=== PATIENT | male | born 1945 | race Caucasian/White ===

== ENCOUNTER → 2018-10-14 16:02 | Outpatient (CLI) | payer OTHER, SELFPAY ==
[2018-10-14 17:49] LABS: Estimated Glomerular Filt Rate > 60.0 mL/min (>60)
== END ==
PROVIDERS: PCP Family Medicine; Visit Provider Internal Medicine
DX: G44.82 Headache associated with sexual activity (principal)
CPT/HCPCS: 36415; 82565

== ENCOUNTER → 2018-10-17 08:13 | Outpatient (CLI) | payer OTHER, SELFPAY ==
--- NOTE | 2018-10-17 | DI.MRI.S_ITS ---
PROCEDURE: MR HEAD/BRAIN WO/W CON INDICATIONS: VASCULAR HEADACHE TECHNIQUE: Noncontrast axial T1 spin echo, axial T2 fast spin echo, sagittal and axial FLAIR, coronal T2 fast spin echo, axial gradient echo, axial diffusion and ADC through the brain. After the administration of contrast, axial and coronal T1 spin echo with fat saturation through the brain. COMPARISON: None. FINDINGS: Image quality: Excellent. CSF spaces: Basal cisterns are patent. No extra-axial fluid collections. Ventricles are normal in size and shape. Brain: No midline shift. No intracranial bleeds or masses. No abnormal intracranial enhancement. There is cerebral volume loss for age. There is periventricular white matter chronic small vessel ischemic change. The brainstem appears normal. Diffusion-weighted images demonstrate no acute ischemic insults. No chronic ischemic insults. Normal intravascular flow voids are present. Skull and face: Calvarial marrow is normal in signal. Orbits appear normal. There is a 12 mm diameter well-circumscribed high T2 intensity focus within the posterior nasopharynx, consistent with a Tornwaldt cyst. Sinuses: Sinuses and mastoids appear clear. IMPRESSION: 1. No acute intracranial abnormality. No examination for headache. 2. Mild volume loss and small vessel ischemic disease. 3. Small Tornwaldt cyst. Dictated by: Ismael Cruz M.D. on 10/17/2018 at 11:46 Approved by: Ismael Cruz M.D. on 10/17/2018 at 11:48
--- NOTE | 2018-10-17 | DI.MRI.S_ITS ---
PROCEDURE: MR CERVICAL SPINE WO/W CON INDICATIONS: VASCULAR HEADACHE TECHNIQUE: Noncontrast sagittal T1 spin echo and T2 fast spin echo, sagittal STIR, foraminal oblique sagittal T2 fast spin echo, axial gradient echo or T2 fast spin echo through the cervical spine. After the administration of contrast, axial and sagittal T1 spin echo with fat saturation through the cervical spine. COMPARISON: None. FINDINGS: Image quality: Excellent. Alignment and curvature: There is loss of normal cervical lordosis. There is mild focal kyphosis at C3-C4. Marrow: Marrow is normal in overall signal, without suspicious enhancement. Anterior fusion of C4-C7 has been performed. There is moderate reactive signal within the endplates adjacent to the T1-T2 intervertebral disc. Within the right lateral mass of T2, there is a 12 mm diameter well-circumscribed high T2 intensity and low T1 intensity focus which demonstrates post contrast-enhancement. Spinal cord: Visualized spinal cord has normal size and signal. No cerebellar tonsillar herniation. No abnormal intramedullary enhancement. Paraspinous soft tissues: No paravertebral masses or suspicious enhancement. C2-3: Congenital canal stenosis. Moderate disc desiccation. Mild diffuse disc bulge with superimposed broad-based right posterolateral protrusion. Right greater than left facet and uncovertebral hypertrophy. There is moderate to severe canal stenosis. Mild cord flattening. Severe right and mild left foraminal stenosis. Right C3 nerve root flattening. C3-4: Congenital canal stenosis. Moderate disc desiccation. Mild diffuse disc bulge. Small superimposed central protrusion. Moderate facet and uncovertebral hypertrophy bilaterally. Severe canal stenosis. Mild anterior cord flattening. Severe left and moderate right foraminal stenosis. Left C4 nerve root flattening. C4-5: Status post fusion. Congenital canal stenosis. Mild residual disc osteophyte complex. Bilateral facet and uncovertebral hypertrophy. Moderate canal stenosis. Severe left and moderate right foraminal stenosis. Mild flattening deformity of the left C5 nerve root. C5-6: Status post fusion. Congenital canal stenosis. Bilateral facet and uncovertebral hypertrophy. Moderate canal stenosis. Moderate foraminal stenosis bilaterally. C6-7: Congenital canal stenosis. Status post fusion. Mild residual disc osteophyte complex. Bilateral facet and uncovertebral hypertrophy. Severe canal stenosis. Mild cord flattening. Severe bilateral foraminal stenosis. Bilateral intraforaminal C7 nerve root flattening. C7-T1: Moderate disc desiccation. Mild diffuse disc bulge. Mild disc height loss. Congenital canal stenosis. Mild facet and uncovertebral hypertrophy. Moderate canal stenosis. Mild foraminal stenosis bilaterally. T1-T2: Moderate disc height loss and desiccation. Moderate diffuse disc bulge. Congenital canal stenosis. Bilateral moderate facet and uncovertebral hypertrophy. Severe canal stenosis. Mild cord flattening. Severe foraminal stenosis bilaterally. Bilateral T1 nerve root flattening. IMPRESSION: 1. Diffuse congenital canal stenosis with superimposed disc and facet disease, as well as uncovertebral hypertrophy. 2. Postsurgical sequelae at C4-C7. 3. Multilevel canal stenoses, worst at C2-C3, C3-C4, C6-C7, and T1-T2, where there is associated cord flattening present. 4. Multilevel foraminal stenoses, worst at C2-C3, C3-C4, C4-C5, C6-C7, and T1-T2, where there is associated intraforaminal neural compression as described above. 5. Indeterminate focus of enhancement within the right T2 transverse process; further assessment with bone scan is recommended. Dictated by: Ismael Cruz M.D. on 10/17/2018 at 11:52 Approved by: Ismael Cruz M.D. on 10/17/2018 at 12:00
== END ==
PROVIDERS: PCP Family Medicine; Visit Provider Internal Medicine
DX: G44.1 Vascular headache, not elsewhere classified (principal); I67.82 Cerebral ischemia; M50.21 Other cervical disc displacement, high cervical region; M48.02 Spinal stenosis, cervical region; J39.2 Other diseases of pharynx; Z98.1 Arthrodesis status
CPT/HCPCS: 70553; 72156; A9579

== ENCOUNTER 2019-01-05 11:27 | Emergency (ER) | payer MEDICARE, OTHER, SELFPAY ==
--- NOTE | 2019-01-05 11:37 | PC.NURSE ---
Attempted to triage upon arrival to ED but pt wanted to call [facility] to get permission first no acute distress.
[2019-01-05 11:56] VITALS: BP 141/88; PULSE 79; RESP 18; TEMP 37; O2SAT 95
[2019-01-05 12:23] LABS: Bacteria Urine None Seen; RBC Urine None Seen (0-5/HPF); WBC Urine None Seen (0-5/HPF)
[2019-01-05 12:42] LABS: Culture Indicated Urine Cult Not Indicated; Urine Comments Microscopic Normal
--- NOTE | 2019-01-05 13:27 | ED.MALEGU ---
HPI - Male Genitourinary General Chief complaint: Urogenital-Male Stated complaint: States he passed Kidney stone last night Time Seen by Provider: 01/05/19 13:27 Source: patient Mode of arrival: ambulatory Limitations: no limitations History of Present Illness HPI Narrative: This is a 73-year-old male who comes to the emergency department with complaint of right flank pain as well as right upper quadrant pain. Patient states it was last night he felt like he was passing a kidney stone although the right upper quadrant pain in the anterior abdomen was new. He states that it has resolved. Patient denies any fevers, he did have nausea and vomiting or dry heaves last night that has all resolved. He has had some mild constipation. He denies any abdominal pain or flank pain at this time. He did not know any blood in his urine. He states that he has done this before. He did take an oxycodone which helped take the edge off until his symptoms resolved. He called the nursing hotline this morning at 6 they recommended that he come to the local hospital for evaluation and he presented here. Related Data Home Medications Medication Instructions Recorded Confirmed Artificial Tears (polyvin alc) 1 - 2 drp OPHTHALMIC (EYE) QID PRN 01/05/19 01/05/19 ammonium lactate 1 applic TOPICAL BID 01/05/19 01/05/19 aspirin 81 mg PO DAILY 01/05/19 01/05/19 bupropion HCl 150 mg PO BID 01/05/19 01/05/19 cholecalciferol (vitamin D3) 1,000 unit PO DAILY 01/05/19 01/05/19 [Vitamin D3] cyanocobalamin (vitamin B-12) 1,000 mcg PO DAILY 01/05/19 01/05/19 gabapentin 300 mg PO BID 01/05/19 01/05/19 losartan 100 mg PO DAILY 01/05/19 01/05/19 meclizine 25 - 50 mg PO DAILY PRN 01/05/19 01/05/19 metformin 1,000 mg PO BID 01/05/19 01/05/19 methylphenidate HCl [Concerta] 27 mg PO DAILY 01/05/19 01/05/19 multivitamin with minerals 1 tab PO DAILY 01/05/19 01/05/19 omeprazole 20 mg PO DAILY 01/05/19 01/05/19 prednisone 5 mg PO DAILY 01/05/19 01/05/19 rosuvastatin 2.5 mg PO BEDTIME 01/05/19 01/05/19 sulindac 200 mg PO BID 01/05/19 01/05/19 tamsulosin 0.4 mg PO DAILY 01/05/19 01/05/19 Allergies Allergy/AdvReac Type Severity Reaction Status Date / Time No Known Drug Allergies Allergy Verified 01/05/19 12:00 Review of Systems Review of Systems ROS Unobtainable: All systems reviewed & are unremarkable except as noted in HPI and below Constitutional Denies chills, Denies fever(s), Denies lethargy and Denies weakness Cardiovascular Denies chest pain, Denies irregular heart rhythm, Denies lightheadedness, Denies dyspnea and Denies dyspnea on exertion Respiratory Denies cough, Denies dyspnea, Denies dyspnea on exertion and Denies wheezing Gastrointestinal Gastrointestinal: Reports abdominal pain (Right upper quadrant), Denies change in bowel habits, Denies diarrhea, Reports nausea (Resolved) and Reports vomiting (Resolved) Genitourinary Denies hematuria, Denies difficulty urinating, Denies dysuria, Denies flank pain, Denies urinary frequency, Denies urinary hesitancy, Denies urinary incontinence, Denies urinary urgency and Reports other (Right flank pain) Neurologic Denies weakness Allergic/Immunologic Denies wheezing PFSH Social History Smoking Status: Never smoker Social History Smoking Status: Never smoker Exam Narrative Exam Narrative: GENERAL: Alert and oriented x three, well-nourished, well-appearing male in no acute distress. HEENT: Head normocephalic, atraumatic, EOMI, pupils reactive, face symmetric, moist mucous membranes NECK: Supple, full range of motion CARDIOVASCULAR: Regular rate and rhythm without murmurs, rubs or gallops. RESPIRATORY: Breath sounds equal bilaterally, no wheezes rales or rhonchi. ABDOMEN: Soft, very mild right upper quadrant tenderness. Normoactive bowel sounds all 4 quadrants. No guarding or rebound, rigidity, no mass : No CVA tenderness right or left-sided. EXTREMITIES: Normal range of motion, no clubbing or edema. Neurovascularly intact. normal gait. NEUROLOGICAL: Cranial nerves II through XII grossly intact. Moving all extremities SKIN: Warm, dry, no petechiae, no rashes or lesions. Initial Vital Signs Initial Vital Signs: Vital Signs Temperature 98.6 F 01/05/19 11:56 Pulse Rate 79 01/05/19 11:56 Respiratory Rate 18 01/05/19 11:56 Blood Pressure 141/88 H 01/05/19 11:56 Pulse Oximetry 95 01/05/19 11:56 Course Orders Ordered: ED Orders 01/05/19 12:12 Urine Microscopic Stat 01/05/19 13:45 US abdomen complete Stat 01/05/19 14:51 Complete Blood Count AUTO DIFF Stat Comprehensive Metabolic Panel Stat Vital Signs - 8 hr 01/05/19 15:31 Pulse Rate 71 Respiratory Rate 17 Blood Pressure [Left Arm] 142/99 H Pulse Oximetry 92 MDM - Male Genitourinary Lab Data Result diagrams: 01/05/19 14:51 01/05/19 14:51 Lab Results 01/05/19 01/05/19 01/05/19 Range/Units 12:12 14:51 14:51 WBC 7.3 (4.5-11.0) X10^3/uL RBC 5.53 (4.5-5.9) X10^6/uL Hgb 16.1 (13.5-17.5) g/dL Hct 47.2 (41-53) % MCV 85.5 (80-100) fL MCH 29.2 (26-34) PG MCHC 34.2 (30-36) % RDW 14.9 H (11.6-14.8) % Plt Count 159 (150-400) X10^3/uL Neut % (Auto) 69.2 (50-75) % Lymph % (Auto) 18.1 L (25-40) % [place] % (Auto) 11.5 (3-14) % Eos % (Auto) 0.9 L (2-4) % Baso % (Auto) 0.3 (0-2) % Neut # (Auto) 5100 (7945-6028) /uL Lymph # (Auto) 1300 (4633-4203) /uL [place] # (Auto) 800 (0-900) /uL Eos # (Auto) 100 (0-450) /uL Baso # (Auto) 0 (0-100) /uL Sodium 136 L (137-145) mmol/L Potassium 4.4 (3.4-5.1) mmol/L Chloride 99 (98-107) mmol/L Carbon Dioxide 28 (22-32) mmol/L BUN 22 H (9-20) mg/dL Creatinine 1.40 H (0.66-1.25) mg/dL Estimated GFR 50.0 L (>60) mL/min BUN/Creatinine Ratio 15.7 (6-22) Glucose 159 H (80-110) mg/dL Calcium 11.1 H (8.4-10.2) mg/dL Total Bilirubin 0.8 (0.2-1.3) mg/dL AST 33 (17-59) IU/L ALT 75 H (21-72) IU/L Alkaline Phosphatase 62 (38-126) U/L Total Protein 7.4 (6.3-8.2) g/dL Albumin 4.7 (3.5-5.0) g/dL Globulin 2.7 (1.7-4.1) g/dL Albumin/Globulin Ratio 1.7 (1.0-2.8) Urine RBC None seen (0-5/HPF) Urine WBC None seen (0-5/HPF) Urine Bacteria None seen (None) Ur Culture Indicated? Cult not indicated Micro UA Comment Microscopic normal Point of Care Testing Glucose POC 159 Urine Dip Bedside Urine Glucose 1000 mg/dl Bedside Urine Bilirubin - Negative Bedside Urine Ketone +/- 5 Urine Specific [place] 1.025 Bedside Urine Occult Blood +/- Bedside Urine pH 6.0 Bedside Urine Protein - Negative Bedside Urine Urobilinogen - Negative Bedside Urine Nitrite - Negative Bedside Urine Leukocytes - Negative Esterase Imaging Data US - abdomen: Radiologist's impression: Sukumar Ruano Louis 73 M 1945 [place] [address] Ultrasound Report Signed Patient: Sukumar Ruano OMR#: [id number] : 8Acct:[id number] Age/Sex: 73 / MDate of Service: 01/05/19 Loc: ED Accession Number: [id number] Procedure: US abdomen complete Ordering Provider: Iman Carlos D.O. PROCEDURE: US ABDOMEN COMPLETE INDICATIONS: RUQ/Right flank pain improving TECHNIQUE: Real-time scanning was performed of the abdominal and retroperitoneal organs, with image documentation. COMPARISON: None. FINDINGS: Liver: Liver is enlarged and measures 22.1 cm in length. Increased liver parenchymal echotexture is seen. No gross discrete hepatic lesion is noted. Gallbladder: There is no gallstone. No gallbladder wall thickening or pericholecystic fluid. No sonographic Canela's sign. Biliary ducts: Intrahepatic bile ducts are non-dilated. Extrahepatic bile duct caliber measures 4.1 mm. Normal is 6-7 mm or less in diameter, or 10 mm or less post-cholecystectomy. Pancreas: Visualized portions of the pancreas are sonographically normal. Spleen: Spleen is normal in size and homogeneous in echotexture. Kidneys: Kidneys are normal in size and echotexture. Right kidney measures 10.8 cm long; left kidney measures 13.1 cm long. No hydronephrosis or nephrolithiasis. No solid masses. Aorta: Visualized aorta is normal in caliber at less than 3 cm. Iliacs: Proximal common iliac arteries are normal in caliber at less than 2.5 cm. IVC: Intrahepatic inferior vena cava is patent. Miscellaneous: No free abdominal fluid. IMPRESSION: #1. Slightly limited study due to patient's large body habitus and poor penetration through the liver. #2. Hepatomegaly and diffusely increased liver parenchymal echotexture suggestive of hepatic steatosis. No discrete hepatic lesion. #3. Rest of exam is unremarkable. Dictated by: Wes Miramontes M.D. on 01/05/2019 at 14:44 Approved by: Wes Miramontes M.D. on 01/05/2019 at 14:46 MDM Narrative Medical decision making narrative: Patient's ultrasound does not have any acute changes. Patient's renal function creatinine did increase from 1 from October 12-1.4 today, BUN is also slightly elevated. Patient's sodium is 136. ALT is 75 which is elevated from prior the rest of patient's LFTs are normal CBC shows a left shift but otherwise normal. discussed with patient plan for follow-up with repeat renal function. patient is asymptomatic at this time. Also encouraged hydration orally. Discussed these findings with the patient. He is comfortable with this plan. We did discuss he can return for recheck. Discharge Plan Departure Patient Disposition: Home Clinical Impression: Right flank pain, Elevated serum creatinine Abdominal pain Qualifiers: Abdominal location: right upper quadrant Qualified Code(s): R10.11 - Right upper quadrant pain Discharge Date/Time: 01/05/19 15:42 Interventions: ED Discharge Assessment Last Done: 01/05/19 15:41 Instructions: DI for Abdominal Pain-Adult Activity Restrictions/Additional Instructions: Follow-up with your primary care in the next 3-5 days for recheck. Your urine today does show blood which would be consistent with a kidney stone. Her renal function is slightly elevated at 1.4 which is up from the last lab work in September. He should follow up with your physician to have this rechecked in the next several days. Ultrasound does not show any gallstones or changes to the gallbladder, there was difficulty imaging the kidney well but no large kidney stones were noted. Continue your home medications as prescribed. Return to the ER for fevers greater than 100.4, worsening back or flank pain, persistent vomiting, passing out, lightheadedness, shortness of breath or other new or concerning symptoms. Prescriptions: No Action Artificial Tears (polyvin alc) 1 - 2 drp ophthalmic (eye) QID PRN (Reason: Dry Eyes) RF: 0 bupropion HCl 150 mg Tablet Sustained-Release 12 Hr 150 mg PO BID RF: 0 ammonium lactate 12 % Lotion 1 applic TOPICAL BID RF: 0 prednisone 5 mg Tablet 5 mg PO DAILY RF: 0 cyanocobalamin (vitamin B-12) 1,000 mcg Tablet 1,000 mcg PO DAILY RF: 0 aspirin 81 mg Tablet,Delayed Release (Dr/Ec) 81 mg PO DAILY RF: 0 tamsulosin 0.4 mg Capsule 0.4 mg PO DAILY RF: 0 metformin 1,000 mg Tablet 1,000 mg PO BID RF: 0 gabapentin 300 mg Capsule 300 mg PO BID RF: 0 omeprazole 20 mg Capsule,Delayed Release(Dr/Ec) 20 mg PO DAILY RF: 0 multivitamin with minerals Tablet 1 tab PO DAILY RF: 0 losartan 100 mg Tablet 100 mg PO DAILY RF: 0 sulindac 200 mg Tablet 200 mg PO BID RF: 0 meclizine 25 mg Tablet,Chewable 25 - 50 mg PO DAILY PRN (Reason: Vertigo) RF: 0 methylphenidate HCl [Concerta] 27 mg Tablet Extended Release 24hr 27 mg PO DAILY RF: 0 rosuvastatin 5 mg Tablet 2.5 mg PO BEDTIME RF: 0 cholecalciferol (vitamin D3) [Vitamin D3] 1,000 unit Tablet 1,000 unit PO DAILY RF: 0 Referrals: Mimi Tomas MD [Primary Care Provider] -
--- NOTE | 2019-01-05 13:45 | DI.US.S_ITS ---
PROCEDURE: US ABDOMEN COMPLETE INDICATIONS: RUQ/Right flank pain improving TECHNIQUE: Real-time scanning was performed of the abdominal and retroperitoneal organs, with image documentation. COMPARISON: None. FINDINGS: Liver: Liver is enlarged and measures 22.1 cm in length. Increased liver parenchymal echotexture is seen. No gross discrete hepatic lesion is noted. Gallbladder: There is no gallstone. No gallbladder wall thickening or pericholecystic fluid. No sonographic Canela's sign. Biliary ducts: Intrahepatic bile ducts are non-dilated. Extrahepatic bile duct caliber measures 4.1 mm. Normal is 6-7 mm or less in diameter, or 10 mm or less post-cholecystectomy. Pancreas: Visualized portions of the pancreas are sonographically normal. Spleen: Spleen is normal in size and homogeneous in echotexture. Kidneys: Kidneys are normal in size and echotexture. Right kidney measures 10.8 cm long; left kidney measures 13.1 cm long. No hydronephrosis or nephrolithiasis. No solid masses. Aorta: Visualized aorta is normal in caliber at less than 3 cm. Iliacs: Proximal common iliac arteries are normal in caliber at less than 2.5 cm. IVC: Intrahepatic inferior vena cava is patent. Miscellaneous: No free abdominal fluid. IMPRESSION: #1. Slightly limited study due to patient's large body habitus and poor penetration through the liver. #2. Hepatomegaly and diffusely increased liver parenchymal echotexture suggestive of hepatic steatosis. No discrete hepatic lesion. #3. Rest of exam is unremarkable. Dictated by: Wes Miramontes M.D. on 01/05/2019 at 14:44 Approved by: Wes Miramontes M.D. on 01/05/2019 at 14:46
--- NOTE | 2019-01-05 13:53 | ED_ITS ---
HPI - Male Genitourinary General Chief complaint: Urogenital-Male Stated complaint: States he passed Kidney stone last night Time Seen by Provider: 01/05/19 13:27 Source: patient Mode of arrival: ambulatory Limitations: no limitations History of Present Illness HPI Narrative: This is a 73-year-old male who comes to the emergency department with complaint of right flank pain as well as right upper quadrant pain. P atient states it was last night he felt like he was passing a kidney stone although the right upper quadrant pain in the anterior abdomen was new. He states that it has resolved. Patient denies any fevers, he did have nausea and vomiting or dry heaves last night that has all resolved. He has had some mild constipation. He denies any abdominal pain or flank pain at this time. He did not know any blood in his urine. He states that he has done this before. He did take an oxycodone which helped take the edge off until his symptoms resolved. He called the nursing hotline this morning at 6 they recommended that he come to the local hospital for evaluation and he presented here. Related Data Home Medications Medication Instructions Recorded Confirmed Artificial Tears (polyvin alc) 1 - 2 drp OPHTHALMIC (EYE) QID PRN 01/05/19 01/05/19 ammonium lactate 1 applic TOPICAL BID 01/05/19 01/05/19 aspirin 81 mg PO DAILY 01/05/19 01/05/19 bupropion HCl 150 mg PO BID 01/05/19 01/05/19 cholecalciferol (vitamin D3) 1,000 unit PO DAILY 01/05/19 01/05/19 [Vitamin D3] cyanocobalamin (vitamin B-12) 1,000 mcg PO DAILY 01/05/19 01/05/19 gabapentin 300 mg PO BID 01/05/19 01/05/19 losartan 100 mg PO DAILY 01/05/19 01/05/19 meclizine 25 - 50 mg PO DAILY PRN 01/05/19 01/05/19 metformin 1,000 mg PO BID 01/05/19 01/05/19 methylphenidate HCl [Concerta] 27 mg PO DAILY 01/05/19 01/05/19 multivitamin with minerals 1 tab PO DAILY 01/05/19 01/05/19 omeprazole 20 mg PO DAILY 01/05/19 01/05/19 prednisone 5 mg PO DAILY 01/05/19 01/05/19 rosuvastatin 2.5 mg PO BEDTIME 01/05/19 01/05/19 sulindac 200 mg PO BID 01/05/19 01/05/19 tamsulosin 0.4 mg PO DAILY 01/05/19 01/05/19 Allergies Allergy/AdvReac Type Severity Reaction Status Date / Time No Known Drug Allergies Allergy Verified 01/05/19 12:00 Review of Systems Review of Systems ROS Unobtainable: All systems reviewed & are unremarkable except as noted in HPI and below Constitutional Denies chills, Denies fever(s), Denies lethargy and Denies weakness Cardiovascular Denies chest pain, Denies irregular heart rhythm, Denies lightheadedness, Denies dyspnea and Denies dyspnea on exertion Respiratory Denies cough, Denies dyspnea, Denies dyspnea on exertion and Denies wheezing Gastrointestinal Gastrointestinal: Reports abdominal pain (Right upper quadrant), Denies change in bowel habits, Denies diarrhea, Reports nausea (Resolved) and Reports vomiting (Resolved) Genitourinary Denies hematuria, Denies difficulty urinating, Denies dysuria, Denies flank pain, Denies urinary frequency, Denies urinary hesitancy, Denies urinary incontinence, Denies urinary urgency and Reports other (Right flank pain) Neurologic Denies weakness Allergic/Immunologic Denies wheezing PFSH Social History Smoking Status: Never smoker Social History Smoking Status: Never smoker Exam Narrative Exam Narrative: GENERAL: Alert and oriented x three, well-nourished, well- appearing male in no acute distress. HEENT: Head normocephalic, atraumatic, EOMI, pupils reactive, face symmetric, moist mucous membranes NECK: Supple, full range of motion CARDIOVASCULAR: Regular rate and rhythm without murmurs, rubs or gallops. RESPIRATORY: Breath sounds equal bilaterally, no wheezes rales or rhonchi. ABDOMEN: Soft, very mild right upper quadrant tenderness. Normoactive bowel sounds all 4 quadrants. No guarding or rebound, rigidity, no mass : No CVA tenderness right or left-sided. EXTREMITIES: Normal range of motion, no clubbing or edema. Neurovascularly int act. normal gait. NEUROLOGICAL: Cranial nerves II through XII grossly intact. Moving all extremities SKIN: Warm, dry, no petechiae, no rashes or lesions. Initial Vital Signs Initial Vital Signs: Vital Signs Temperature 98.6 F 01/05/19 11:56 Pulse Rate 79 01/05/19 11:56 Respiratory Rate 18 01/05/19 11:56 Blood Pressure 141/88 H 01/05/19 11:56 Pulse Oximetry 95 01/05/19 11:56 Course Orders Ordered: ED Orders 01/05/19 12:12 Urine Microscopic Stat 01/05/19 13:45 US abdomen complete Stat 01/05/19 14:51 Complete Blood Count AUTO DIFF Stat Comprehensive Metabolic Panel Stat Vital Signs - 8 hr 01/05/19 15:31 Pulse Rate 71 Respiratory Rate 17 Blood Pressure [Left Arm] 142/99 H Pulse Oximetry 92 MDM - Male Genitourinary Lab Data Result diagrams: 01/05/19 14:51 01/05/19 14:51 Lab Results 01/05/19 01/05/19 01/05/19 Range/Units 12:12 14:51 14:51 WBC 7.3 (4.5-11.0) X10^3/uL RBC 5.53 (4.5-5.9) X10^6/uL Hgb 16.1 (13.5-17.5) g/dL Hct 47.2 (41-53) % MCV 85.5 (80-100) fL MCH 29.2 (26-34) PG MCHC 34.2 (30-36) % RDW 14.9 H (11.6-14.8) % Plt Count 159 (150-400) X10^3/uL Neut % (Auto) 69.2 (50-75) % Lymph % (Auto) 18.1 L (25-40) % [place] % (Auto) 11.5 (3-14) % Eos % (Auto) 0.9 L (2-4) % Baso % (Auto) 0.3 (0-2) % Neut # (Auto) 5100 (0862-6238) /uL Lymph # (Auto) 1300 (9815-0923) /uL [place] # (Auto) 800 (0-900) /uL Eos # (Auto) 100 (0-450) /uL Baso # (Auto) 0 (0-100) /uL Sodium 136 L (137-145) mmol/L Potassium 4.4 (3.4-5.1) mmol/L Chloride 99 (98-107) mmol/L Carbon Dioxide 28 (22-32) mmol/L BUN 22 H (9-20) mg/dL Creatinine 1.40 H (0.66-1.25) mg/dL Estimated GFR 50.0 L (>60) mL/min BUN/Creatinine Ratio 15.7 (6-22) Glucose 159 H (80-110) mg/dL Calcium 11.1 H (8.4-10.2) mg/dL Total Bilirubin 0.8 (0.2-1.3) mg/dL AST 33 (17-59) IU/L ALT 75 H (21-72) IU/L Alkaline Phosphatase 62 (38-126) U/L Total Protein 7.4 (6.3-8.2) g/dL Albumin 4.7 (3.5-5.0) g/dL Globulin 2.7 (1.7-4.1) g/dL Albumin/Globulin Ratio 1.7 (1.0-2.8) Urine RBC None seen (0-5/HPF) Urine WBC None seen (0-5/HPF) Urine Bacteria None seen (None) Ur Culture Indicated? Cult not indicated Micro UA Comment Microscopic normal Point of Care Testing Glucose POC 159 Urine Dip Bedside Urine Glucose 1000 mg/dl Bedside Urine Bilirubin - Negative Bedside Urine Ketone +/- 5 Urine Specific Media 1.025 Bedside Urine Occult Blood +/- Bedside Urine pH 6.0 Bedside Urine Protein - Negative Bedside Urine Urobilinogen - Negative Bedside Urine Nitrite - Negative Bedside Urine Leukocytes - Negative Esterase Imaging Data US - abdomen: Radiologist's impression: Sukumar Ruano Louis 73 M [address] [place] [address] Ultrasound Report Signed Patient: Sukumar Ruano OMR#: [id number] : 8Acct:[id number] Age/Sex: 73 / MDate of Service: 01/05/19 Loc: ED Accession Number: [id number] Procedure: US abdomen complete Ordering Provider: Iman Carlos D.O. PROCEDURE: US ABDOMEN COMPLETE INDICATIONS: RUQ/Right flank pain improving TECHNIQUE: Real-time scanning was performed of the abdominal and retroperitoneal organs, with image documentation. COMPARISON: None. FINDINGS: Liver: Liver is enlarged and measures 22.1 cm in length. Increased liver parenchymal echotexture is seen. No gross discrete hepatic lesion is noted. Gallbladder: There is no gallstone. No gallbladder wall thickening or pericholecystic fluid. No sonographic Canela's sign. Biliary ducts: Intrahepatic bile ducts are non-dilated. Extrahepatic bile duct caliber measures 4.1 mm. Normal is 6-7 mm or less in diameter, or 10 mm or less post-cholecystectomy. Pancreas: Visualized portions of the pancreas are sonographically normal. Spleen: Spleen is normal in size and homogeneous in echotexture. Kidneys: Kidneys are normal in size and echotexture. Right kidney measures 10.8 cm long; left kidney measures 13.1 cm long. No hydronephrosis or nephrolithiasis. No solid masses. Aorta: Visualized aorta is normal in caliber at less than 3 cm. Iliacs: Proximal common iliac arteries are normal in caliber at less than 2.5 cm. IVC: Intrahepatic inferior vena cava is patent. Miscellaneous: No free abdominal fluid. IMPRESSION: #1. Slightly limited study due to patient's large body habitus and poor penetra tion through the liver. #2. Hepatomegaly and diffusely increased liver parenchymal echotexture sugg estive of hepatic steatosis. No discrete hepatic lesion. #3. Rest of exam is unremarkable. Dictated by: Wes Miramontes M.D. on 01/05/2019 at 14:44 Approved by: Wes Miramontes M.D. on 01/05/2019 at 14:46 MDM Narrative Medical decision making narrative: Patient's ultrasound does not have any acute changes. Patient's renal function creatinine did increase from 1 from October 12-1.4 today, BUN is also slightly elevated. Patient's sodium is 136. ALT is 75 which is elevated from prior the rest of patient's LFTs are normal CBC shows a left shift but otherwise normal. discussed with patient plan for follow-up with repeat renal function. patient is asymptomatic at this time. Also encouraged hydration orally. Discussed these findings with the patient. He is comfortable with this plan. We did discuss he can return for recheck. Discharge Plan Departure Patient Disposition: Home Clinical Impression: Right flank pain, Elevated serum creatinine Abdominal pain Qualifiers: Abdominal location: right upper quadrant Qualified Code(s): R10.11 - Right upper quadrant pain Discharge Date/Time: 01/05/19 15:42 Interventions: ED Discharge Assessment Last Done: 01/05/19 15:41 Instructions: DI for Abdominal Pain-Adult Activity Restrictions/Additional Instructions: Follow-up with your primary care in the next 3-5 days for recheck. Your urine today does show blood which would be consistent with a kidney stone. Her renal function is slightly elevated at 1.4 which is up from the last lab work in September. He should follow up with your physician to have this rechecked in the next several days. Ultrasound does not show any gallstones or changes to the gallbladder, there was difficulty imaging the kidney well but no large kidney stones were noted. Continue your home medications as prescribed. Return to the ER for fevers greater than 100.4, worsening back or flank pain, persistent vomiting, passing out, lightheadedness, shortness of breath or other new or concerning symptoms. Prescriptions: No Action Artificial Tears (polyvin alc) 1 - 2 drp ophthalmic (eye) QID PRN (Reason: Dry Eyes) RF: 0 bupropion HCl 150 mg Tablet Sustained-Release 12 Hr 150 mg PO BID RF: 0 ammonium lactate 12 % Lotion 1 applic TOPICAL BID RF: 0 prednisone 5 mg Tablet 5 mg PO DAILY RF: 0 cyanocobalamin (vitamin B-12) 1,000 mcg Tablet 1,000 mcg PO DAILY RF: 0 aspirin 81 mg Tablet,Delayed Release (Dr/Ec) 81 mg PO DAILY RF: 0 tamsulosin 0.4 mg Capsule 0.4 mg PO DAILY RF: 0 metformin 1,000 mg Tablet 1,000 mg PO BID RF: 0 gabapentin 300 mg Capsule 300 mg PO BID RF: 0 omeprazole 20 mg Capsule,Delayed Release(Dr/Ec) 20 mg PO DAILY RF: 0 multivitamin with minerals Tablet 1 tab PO DAILY RF: 0 losartan 100 mg Tablet 100 mg PO DAILY RF: 0 sulindac 200 mg Tablet 200 mg PO BID RF: 0 meclizine 25 mg Tablet,Chewable 25 - 50 mg PO DAILY PRN (Reason: Vertigo) RF: 0 methylphenidate HCl [Concerta] 27 mg Tablet Extended Release 24hr 27 mg PO DAILY RF: 0 rosuvastatin 5 mg Tablet 2.5 mg PO BEDTIME RF: 0 cholecalciferol (vitamin D3) [Vitamin D3] 1,000 unit Tablet 1,000 unit PO DAILY RF: 0 Referrals: Mimi Tomas MD [Primary Care Provider] -
[2019-01-05 14:59] LABS: Add Manual Diff / Slide Review NO; Basophils Absolute Auto 0 /uL (0-100); Basophils Percent Auto 0.3 % (0-2); Eosinophils Absolute Auto 100 /uL (0-450); Eosinophils Percent Auto 0.9 % (2-4); Hematocrit 47.2 % (41-53); Hemoglobin 16.1 g/dL (13.5-17.5); Lymphocytes Absolute Auto 1300 /uL (1100-4500); Lymphocytes Percent Auto 18.1 % (25-40); Mean Corpuscular HGB Conc 34.2 % (30-36); Mean Corpuscular Hemoglobin 29.2 PG (26-34); Mean Corpuscular Volume 85.5 fL (80-100); Monocytes Absolute Auto 800 /uL (0-900); Monocytes Percent Auto 11.5 % (3-14); Neutrophils Absolute Auto 5100 /uL (1500-7000); Neutrophils Percent Auto 69.2 % (50-75); Platelet Count 159 X10^3/uL (150-400); Red Blood Cell Count 5.53 X10^6/uL (4.5-5.9); Red Cell Distribution Width 14.9 % (11.6-14.8); White Blood Cell Count 7.3 X10^3/uL (4.5-11.0)
[2019-01-05 15:13] LABS: Alanine Aminotransferase 75 IU/L (21-72); Albumin 4.7 g/dL (3.5-5.0); Albumin Globulin Ratio 1.7 (1.0-2.8); Alkaline Phosphatase 62 U/L (38-126); Aspartate Aminotransferase 33 IU/L (17-59); BUN Creatinine Ratio 15.7 (6-22); Bilirubin Total 0.8 mg/dL (0.2-1.3); Blood Urea Nitrogen 22 mg/dL (9-20); Calcium 11.1 mg/dL (8.4-10.2); Carbon Dioxide 28 mmol/L (22-32); Chloride 99 mmol/L (98-107); Globulin 2.7 g/dL (1.7-4.1); Glucose 159 mg/dL (80-110); HEMOLYSIS 15 (0-50); Potassium 4.4 mmol/L (3.4-5.1); Sodium 136 mmol/L (137-145); Total Protein 7.4 g/dL (6.3-8.2)
[2019-01-05 15:31] VITALS: BP 142/99; PULSE 71; RESP 17; O2SAT 92
== END 2019-01-05 15:42 | disposition home or self-care (01) ==
PROVIDERS: Emergency Provider Emergency Medicine; Family Provider Family Medicine; PCP Family Medicine
DX: R10.11 Right upper quadrant pain (principal); R10.9 Unspecified abdominal pain; R79.89 Other specified abnormal findings of blood chemistry
CPT/HCPCS: 36591; 76700; 80053; 81003; 81015; 82962; 85025; 99283; 99284

== ENCOUNTER 2019-06-30 20:26 | Emergency (ER) | payer MEDICARE, OTHER, SELFPAY ==
[2019-06-30 20:38] VITALS: BP 105/61; PULSE 97; RESP 15; TEMP 36.9; O2SAT 96; BMI 34.2
--- NOTE | 2019-06-30 20:51 | ED.FEVER ---
HPI - Fever General Chief Complaint: Fever Stated Complaint: fever and headache s/p surgery Time Seen by Provider: 06/30/19 20:33 Source: patient Mode of arrival: Ambulatory Limitations: no limitations History of Present Illness HPI Narrative: 73-year-old male here for evaluation of less than 24 hours of a fever, headache and chills. approximately 3 weeks ago patient underwent a spinal fusion surgery at [facility]. Reports no new neurologic symptoms. Actually states that his pain is improving and is what he would expect this far out from the surgery. No tingling in his arms. Does have left posterior neck pain that he states is the source of his headache. no rashes. No drainage from the surgical wound. He called the on-call nurse for the spine team at [facility] who recommended that he come to [facility] for evaluation however the patient the family stated that they did not want to drive that far so they came to this emergency department. Related Data Home Medications Medication Instructions Recorded Confirmed Artificial Tears (polyvin alc) 1 - 2 drp OPHTHALMIC (EYE) QID PRN 01/05/19 01/05/19 ammonium lactate 1 applic TOPICAL BID 01/05/19 01/05/19 aspirin 81 mg PO DAILY 01/05/19 01/05/19 bupropion HCl 150 mg PO BID 01/05/19 01/05/19 cholecalciferol (vitamin D3) 1,000 unit PO DAILY 01/05/19 01/05/19 [Vitamin D3] cyanocobalamin (vitamin B-12) 1,000 mcg PO DAILY 01/05/19 01/05/19 gabapentin 300 mg PO BID 01/05/19 01/05/19 losartan 100 mg PO DAILY 01/05/19 01/05/19 meclizine 25 - 50 mg PO DAILY PRN 01/05/19 01/05/19 metformin 1,000 mg PO BID 01/05/19 01/05/19 methylphenidate HCl [Concerta] 27 mg PO DAILY 01/05/19 01/05/19 multivitamin with minerals 1 tab PO DAILY 01/05/19 01/05/19 omeprazole 20 mg PO DAILY 01/05/19 01/05/19 prednisone 5 mg PO DAILY 01/05/19 01/05/19 rosuvastatin 2.5 mg PO BEDTIME 01/05/19 01/05/19 sulindac 200 mg PO BID 01/05/19 01/05/19 tamsulosin 0.4 mg PO DAILY 01/05/19 01/05/19 Allergies Allergy/AdvReac Type Severity Reaction Status Date / Time No Known Drug Allergies Allergy Verified 06/30/19 20:38 Review of Systems Constitutional Constitutional: Reports chills, Reports fatigue, Reports fever(s) and Reports headache(s) Eyes Eyes: Denies change in vision ENT Ears, Nose, Mouth, and Throat: Denies vertigo, Denies dizziness, Reports headache(s), Denies sinus pressure and Denies sore throat Cardiovascular Cardiovascular: Denies chest pain and Denies dyspnea Respiratory Respiratory: Denies dyspnea Genitourinary Genitourinary: Denies dysuria Musculoskeletal Musculoskeletal: Denies myalgias and Denies arthralgias Integumentary/Breasts Skin/Breast: Denies lesions and Denies rash Neurologic Neurologic: Denies behavioral changes, Denies vertigo, Denies dizziness and Reports headache(s) Psychiatric Psychiatric: Denies behavioral changes Endocrine Endocrine: Reports fatigue Hematologic/Lymphatic Hematologic/Lymphatic: Denies easy bleeding and Denies easy bruising Allergic/Immunologic Allergic/Immunologic: Denies urticaria [facility] Medical History Diabetes (Acute) Gastroesophageal reflux disease (Acute) Hyperlipidemia (Acute) Social History Smoking Status: Never smoker Social History Smoking Status: Never smoker Exam Initial Vital Signs Initial Vital Signs: Vital Signs Temperature 98.5 F 06/30/19 20:38 Pulse Rate 97 H 06/30/19 20:38 Respiratory Rate 15 06/30/19 20:38 Blood Pressure 105/61 06/30/19 20:38 Pulse Oximetry 96 06/30/19 20:38 Const General: cooperative, comfortable and well developed Orientation: alert and awake HENNJ Head: normal to inspection and normocephalic Resp Effort & Inspection: normal respiratory effort Auscultation: clear to auscultation bilaterally Cardio Rate: regular rate Rhythm: regular rhythm GI Inspection: non-distended Palpation: soft Back/Spine/Pelvis Cervical Spine: other (Limited range of motion secondary to surgery) Skin Other: Well healing surgical scar posterior neck and upper back Neuro General: alert, awake and oriented x3 Cranial Nerves: CN's II-XI intact bilaterally Cognition: normal cognition Speech: speech normal Gait: normal gait Motor: muscle tone normal throughout Sensory Exam: no sensory deficits noted Extrem General: normal to inspection and capillary refill normal Psych Appearance: grossly normal and well kempt Course Orders Ordered: ED Orders 06/30/19 21:27 Basic Metabolic Panel Stat C-Reactive Protein Quant Stat Complete Blood Count AUTO DIFF Stat Erythrocyte Sedimentation Rate Stat Lactate (Lactic Acid) Stat Procalcitonin Stat 06/30/19 21:42 Blood Culture Stat 06/30/19 22:46 Influenza A and B by PCR Rapid Stat Discontinued Medications Acetaminophen (Tylenol) 325 mg PO Q6HR PRN PRN Reason: As Needed for Fever/Mild Pain Last Admin: 06/30/19 23:31 Dose: 325 mg Documented by: PAUL Vital Signs Vital signs: Vital Signs - 8 hr 06/30/19 20:38 06/30/19 22:16 06/30/19 22:42 Temperature 98.5 F 99.9 F H Pulse Rate 97 H 88 Respiratory Rate 15 14 Blood Pressure 105/61 Blood Pressure [Right Arm] 110/64 Pulse Oximetry 96 95 06/30/19 23:31 06/30/19 23:44 Temperature 99.9 F H Pulse Rate 94 H Respiratory Rate 20 Blood Pressure 111/61 Blood Pressure [Right Arm] Pulse Oximetry 100 MDM - Fever Lab Data Attestation: I reviewed the patient's lab results. Result diagrams: 06/30/19 21:27 06/30/19 21:27 Labs: Lab Results 06/30/19 06/30/19 06/30/19 Range/Units 21:27 21:27 21:27 WBC 8.4 (4.5-11.0) X10^3/uL RBC 4.22 L (4.5-5.9) X10^6/uL Hgb 12.3 L (13.5-17.5) g/dL Hct 36.6 L (41-53) % MCV 86.6 (80-100) fL MCH 29.1 (26-34) PG MCHC 33.6 (30-36) % RDW 14.4 (11.6-14.8) % Plt Count 183 (150-400) X10^3/uL Neut % (Auto) 90.7 H (50-75) % Lymph % (Auto) 3.4 L (25-40) % [place] % (Auto) 5.3 (3-14) % Eos % (Auto) 0.2 L (2-4) % Baso % (Auto) 0.4 (0-2) % Neut # (Auto) 7600 H (3661-6905) /uL Lymph # (Auto) 300 L (3617-7328) /uL [place] # (Auto) 400 (0-900) /uL Eos # (Auto) 0 (0-450) /uL Baso # (Auto) 0 (0-100) /uL ESR 12 (0-15) MM/HR Sodium 132 L (137-145) mmol/L Potassium 5.1 (3.4-5.1) mmol/L Chloride 102 (98-107) mmol/L Carbon Dioxide 23 (22-32) mmol/L BUN 34 H (9-20) mg/dL Creatinine 1.30 H (0.66-1.25) mg/dL Estimated GFR 54.4 L (>60) mL/min BUN/Creatinine Ratio 26.2 H (6-22) Glucose 337 H (80-110) mg/dL Lactate (0.7-2.1) mmol/L Calcium 10.4 H (8.4-10.2) mg/dL C-Reactive Protein 5.0 H (<1.0) mg/dL Procalcitonin 0.75 H (<0.5) ng/mL Influenza A & B (PCR) (Negative) 06/30/19 06/30/19 Range/Units 21:27 22:46 WBC (4.5-11.0) X10^3/uL RBC (4.5-5.9) X10^6/uL Hgb (13.5-17.5) g/dL Hct (41-53) % MCV (80-100) fL MCH (26-34) PG MCHC (30-36) % RDW (11.6-14.8) % Plt Count (150-400) X10^3/uL Neut % (Auto) (50-75) % Lymph % (Auto) (25-40) % [place] % (Auto) (3-14) % Eos % (Auto) (2-4) % Baso % (Auto) (0-2) % Neut # (Auto) (3349-0212) /uL Lymph # (Auto) (2081-7995) /uL [place] # (Auto) (0-900) /uL Eos # (Auto) (0-450) /uL Baso # (Auto) (0-100) /uL ESR (0-15) MM/HR Sodium (137-145) mmol/L Potassium (3.4-5.1) mmol/L Chloride (98-107) mmol/L Carbon Dioxide (22-32) mmol/L BUN (9-20) mg/dL Creatinine (0.66-1.25) mg/dL Estimated GFR (>60) mL/min BUN/Creatinine Ratio (6-22) Glucose (80-110) mg/dL Lactate 2.2 H (0.7-2.1) mmol/L Calcium (8.4-10.2) mg/dL C-Reactive Protein (<1.0) mg/dL Procalcitonin (<0.5) ng/mL Influenza A & B (PCR) Negative (Negative) MDM Narrative Medical decision making narrative: Patient has no neurologic symptoms. no specific source of the fever. I did discuss the case with the on-call spine neurosurgeon who stated that if the patient look well which he does and his labs or what I described that he would recommend not sending the patient down for further advanced imaging. He recommended waiting for the next 12-24 hours to see if the symptoms change specifically if the patient develops any new neurologic symptoms. I did consider meningitis, spinal epidural abscess, hematoma, or other source of a fever. The patient looks very well. he has no new neurologic symptoms. I did discuss this the patient. We discussed the use of Tylenol for symptom control. He was informed that if his symptoms worsen or he develops any neurologic symptoms it would be best for him to go directly to [facility] to obtain further advanced imaging and be evaluated by the operative surgeons. Patient family expressed understanding and agreement with plan. Discharge Plan Departure Patient Disposition: Home Clinical Impression: Chills with fever Discharge Date/Time: 06/30/19 23:45 Instructions: DI for Fever (Symptom) -- Adult Activity Restrictions/Additional Instructions: Take the Tylenol like we discussed. Continue all of your postoperative instructions given to you by your operative surgeon. If you start to develop worsening headache, worsening pain, new neurologic symptoms please contact your operative surgeon and it would be best if you went to [facility] show that they could do advanced imaging if needed. You can return to this emergency department for any new or worsening symptoms like we discussed Prescriptions: No Action Artificial Tears (polyvin alc) 1 - 2 drp ophthalmic (eye) QID PRN (Reason: Dry Eyes) RF: 0 bupropion HCl 150 mg Tablet Sustained-Release 12 Hr 150 mg PO BID RF: 0 ammonium lactate 12 % Lotion 1 applic TOPICAL BID RF: 0 prednisone 5 mg Tablet 5 mg PO DAILY RF: 0 cyanocobalamin (vitamin B-12) 1,000 mcg Tablet 1,000 mcg PO DAILY RF: 0 aspirin 81 mg Tablet,Delayed Release (Dr/Ec) 81 mg PO DAILY RF: 0 tamsulosin 0.4 mg Capsule 0.4 mg PO DAILY RF: 0 metformin 1,000 mg Tablet 1,000 mg PO BID RF: 0 gabapentin 300 mg Capsule 300 mg PO BID RF: 0 omeprazole 20 mg Capsule,Delayed Release(Dr/Ec) 20 mg PO DAILY RF: 0 multivitamin with minerals Tablet 1 tab PO DAILY RF: 0 losartan 100 mg Tablet 100 mg PO DAILY RF: 0 sulindac 200 mg Tablet 200 mg PO BID RF: 0 meclizine 25 mg Tablet,Chewable 25 - 50 mg PO DAILY PRN (Reason: Vertigo) RF: 0 methylphenidate HCl [Concerta] 27 mg Tablet Extended Release 24hr 27 mg PO DAILY RF: 0 rosuvastatin 5 mg Tablet 2.5 mg PO BEDTIME RF: 0 cholecalciferol (vitamin D3) [Vitamin D3] 1,000 unit Tablet 1,000 unit PO DAILY RF: 0 Referrals: Mimi Tomas MD [Primary Care Provider] -
[2019-06-30 21:44] LABS: Add Manual Diff / Slide Review NO; Basophils Absolute Auto 0 /uL (0-100); Basophils Percent Auto 0.4 % (0-2); Eosinophils Absolute Auto 0 /uL (0-450); Eosinophils Percent Auto 0.2 % (2-4); Hematocrit 36.6 % (41-53); Hemoglobin 12.3 g/dL (13.5-17.5); Lymphocytes Absolute Auto 300 /uL (1100-4500); Lymphocytes Percent Auto 3.4 % (25-40); Mean Corpuscular HGB Conc 33.6 % (30-36); Mean Corpuscular Hemoglobin 29.1 PG (26-34); Mean Corpuscular Volume 86.6 fL (80-100); Monocytes Absolute Auto 400 /uL (0-900); Monocytes Percent Auto 5.3 % (3-14); Neutrophils Absolute Auto 7600 /uL (1500-7000); Neutrophils Percent Auto 90.7 % (50-75); Platelet Count 183 X10^3/uL (150-400); Red Blood Cell Count 4.22 X10^6/uL (4.5-5.9); Red Cell Distribution Width 14.4 % (11.6-14.8); White Blood Cell Count 8.4 X10^3/uL (4.5-11.0)
[2019-06-30 21:49] LABS: BUN Creatinine Ratio 26.2 (6-22); Blood Urea Nitrogen 34 mg/dL (9-20); Calcium 10.4 mg/dL (8.4-10.2); Carbon Dioxide 23 mmol/L (22-32); Chloride 102 mmol/L (98-107); Estimated Glomerular Filt Rate 54.4 mL/min (>60); Glucose 337 mg/dL (80-110); HEMOLYSIS < 15 (0-50); Lactate (Lactic Acid) 2.2 mmol/L (0.7-2.1); Sodium 132 mmol/L (137-145)
[2019-06-30 21:50] LABS: Potassium 5.1 mmol/L (3.4-5.1)
[2019-06-30 22:03] LABS: Procalcitonin 0.75 ng/mL (<0.5)
[2019-06-30 22:06] LABS: Erythrocyte Sedimentation Rate 12 MM/HR (0-15)
[2019-06-30 22:16] VITALS: BP 110/64; PULSE 88; RESP 14; O2SAT 95
[2019-06-30 22:42] VITALS: TEMP 37.7
[2019-06-30 23:06] LABS: Influenza A and B by PCR Rapid Negative (Negative)
[2019-06-30 23:31] VITALS: TEMP 37.7
[2019-06-30] MEDS: ACETAMINOPHEN 325 MG TABLET PO (23:31)
[2019-06-30 23:35] LABS: Reflexed Lactate in 2 Hours Y
[2019-06-30 23:44] VITALS: BP 111/61; PULSE 94; RESP 20; O2SAT 100
== END 2019-06-30 23:45 | disposition home or self-care (01) ==
PROVIDERS: Emergency Provider Emergency Medicine; Family Provider Family Medicine; PCP Family Medicine
DX: R50.9 Fever, unspecified (principal); E11.9 Type 2 diabetes mellitus without complications
CPT/HCPCS: 36415; 80048; 83605; 84145; 85025; 85651; 86140; 87040; 87400; 87502; 99282; 99283

== ENCOUNTER 2020-07-18 11:23 | Emergency (ER) | payer MEDICARE, OTHER, SELFPAY ==
[2020-07-18 11:25] VITALS: BP 144/72; PULSE 90; RESP 14; TEMP 37.6; O2SAT 97
--- NOTE | 2020-07-18 11:40 | DI.RAD.S_ITS ---
PROCEDURE: XR CHEST 1V INDICATIONS: suspected sepsis TECHNIQUE: One view of the chest was acquired. COMPARISON: [facility], , CHEST 1 VIEW, 07/07/2017, 2:22. FINDINGS: Surgical changes and devices: Extensive fusion of visualized cervical spine is seen. Lungs and pleura: Lungs are clear. No pleural effusions or pneumothorax. Mediastinum: Mediastinal contours appear normal. Heart size is normal. Bones and chest wall: No suspicious bony lesions. Overlying soft tissues appear unremarkable. IMPRESSION: No acute cardiopulmonary pathology. Dictated by: Wes Miramontes M.D. on 07/18/2020 at 12:24 Approved by: Wes Miramontes M.D. on 07/18/2020 at 12:24
[2020-07-18 12:32] LABS: Bacteria Urine None Seen; RBC Urine None Seen (0-5/HPF)
[2020-07-18 12:52] LABS: Culture Indicated Urine Cult Not Indicated; Squamous Epithelial Cell Urine 0-1 /HPF (0-5/HPF); WBC Urine 0-1/HPF (0-5/HPF)
[2020-07-18 12:58] LABS: Add Manual Diff / Slide Review NO; Basophils Absolute Auto 0 /uL (0-100); Basophils Percent Auto 0.4 % (0-2); Eosinophils Absolute Auto 200 /uL (0-450); Eosinophils Percent Auto 2.8 % (2-4); Hematocrit 36.9 % (41-53); Hemoglobin 12.1 g/dL (13.5-17.5); Lymphocytes Absolute Auto 1300 /uL (1100-4500); Lymphocytes Percent Auto 17.3 % (25-40); Mean Corpuscular HGB Conc 32.8 % (30-36); Mean Corpuscular Hemoglobin 28.1 PG (26-34); Mean Corpuscular Volume 85.9 fL (80-100); Monocytes Absolute Auto 700 /uL (0-900); Monocytes Percent Auto 9.7 % (3-14); Neutrophils Absolute Auto 5100 /uL (1500-7000); Neutrophils Percent Auto 69.8 % (50-75); Platelet Count 316 X10^3/uL (150-400); Red Blood Cell Count 4.29 X10^6/uL (4.5-5.9); Red Cell Distribution Width 15.1 % (11.6-14.8); White Blood Cell Count 7.3 X10^3/uL (4.5-11.0)
[2020-07-18 13:05] LABS: INR 1.1 (0.9-1.3); Prothrombin Time 12.1 SECONDS (10.1-12.7)
[2020-07-18 13:08] LABS: PTT Partial Thromboplastin Tim 28 SECONDS (26.4-36.2)
[2020-07-18 13:10] LABS: Lactate (Lactic Acid) 1.6 mmol/L (0.7-2.1)
[2020-07-18] MEDS: SODIUM CHLORIDE 0.9% 1,000 ML 1000 ML IV (13:13)
[2020-07-18 13:15] LABS: Alanine Aminotransferase 47 IU/L (<50); Albumin 3.9 g/dL (3.5-5.0); Albumin Globulin Ratio 1.3 (1.0-2.8); Alkaline Phosphatase 70 U/L (38-126); Aspartate Aminotransferase 25 IU/L (17-59); BUN Creatinine Ratio 21.9 (6-22); Bilirubin Total 0.5 mg/dL (0.2-1.3); Blood Urea Nitrogen 21 mg/dL (9-20); Calcium 11.6 mg/dL (8.4-10.2); Carbon Dioxide 27 mmol/L (22-32); Chloride 100 mmol/L (98-107); Estimated Glomerular Filt Rate > 60.0 mL/min (>60); Glucose 253 mg/dL (80-110); HEMOLYSIS 17 (0-50); Lipase 112 U/L (23-300); Potassium 4.5 mmol/L (3.4-5.1); Sodium 133 mmol/L (137-145); Total Protein 6.9 g/dL (6.3-8.2)
[2020-07-18 13:34] LABS: Procalcitonin < 0.05 ng/mL (<0.5)
[2020-07-18 14:25] VITALS: BP 121/67; PULSE 77; RESP 18; TEMP 37.1; O2SAT 99
[2020-07-18] MEDS: OXYCODONE/ACETAMINOPHEN 5/325 TABLET 1 TAB PO (14:29)
[2020-07-18] MEDS: ACETAMINOPHEN 325 MG TABLET PO (14:29)
--- NOTE | 2020-07-18 15:08 | ED_ITS ---
HPI - Skin/Abscess/Foreign Bdy <SUN Presley - Last Filed: 07/19/20 02:48> General Chief complaint: Skin/Abscess/Foreign Body Stated complaint: wound dressing post surgery Time Seen by Provider: 07/18/20 11:38 Source: patient Mode of arrival: Ambulatory Limitations: no limitations History of Present Illness HPI narrative: This is a 74 year male, nonsmoker, with past medical history significant for diabetes, hypertension, GERD, and recent L1-S1 spine fusion surgery at [place] by Dr. Hoff on 07/07/20 presents to ED with daughter requesting dressing change on surgical site on his lumbar region. Daughter reports surgery went well and he was released 1 week ago to home. Patient has a follow-up appointment in [address] Hoff's office. However, during triage urge, patient reports had fever up to 101 F 2 days ago and today it was 99.7. Patient reports some chills. Patient reports he is feeling well and pain is well managed and rates his pain as 3/10. Patient is ambulatory at this time. He denies chest pain, short of breath, cough, sore throat, urinary urge ncy/frequency/or dysuria. Patient reports intermittent headaches. Patient was to change surgical dressing daily but 1st dressing change was done just yesterday after dc to home 6 days ago. Denies significant drainage noted with dressing change. Daughter reports patient had cellulitis in lower leg in the past after the surgery. Related Data Home Medications Medication Instructions Recorded Confirmed Artificial Tears (polyvin alc) 1 - 2 drp OPHTHALMIC (EYE) QID PRN 01/05/19 01/05/19 ammonium lactate 1 applic TOPICAL BID 01/05/19 01/05/19 aspirin 81 mg PO DAILY 01/05/19 01/05/19 bupropion HCl 150 mg PO BID 01/05/19 01/05/19 cholecalciferol (vitamin D3) 1,000 unit PO DAILY 01/05/19 01/05/19 [Vitamin D3] cyanocobalamin (vitamin B-12) 1,000 mcg PO DAILY 01/05/19 01/05/19 gabapentin 300 mg PO BID 01/05/19 01/05/19 losartan 100 mg PO DAILY 01/05/19 01/05/19 meclizine 25 - 50 mg PO DAILY PRN 01/05/19 01/05/19 metformin 1,000 mg PO BID 01/05/19 01/05/19 methylphenidate HCl [Concerta] 27 mg PO DAILY 01/05/19 01/05/19 multivitamin with minerals 1 tab PO DAILY 01/05/19 01/05/19 omeprazole 20 mg PO DAILY 01/05/19 01/05/19 prednisone 5 mg PO DAILY 01/05/19 01/05/19 rosuvastatin 2.5 mg PO BEDTIME 01/05/19 01/05/19 sulindac 200 mg PO BID 01/05/19 01/05/19 tamsulosin 0.4 mg PO DAILY 01/05/19 01/05/19 Allergies Allergy/AdvReac Type Severity Reaction Status Date / Time No Known Drug Allergies Allergy Verified 06/30/19 20:38 Review of Systems <SUN Presley - Last Filed: 07/19/20 02:48> Review of Systems Narrative: General: See HPI HEENT: Denies sinus pain, ear pain, sore throat, difficulty swallowing, dizziness. Respiratory: Denies dyspnea, cough, wheezing, hemoptysis, sputum. Cardiovascular: Denies chest pain, palpitations, orthopnea, edema. Gastrointestinal: Denies nausea, vomiting, abdominal pain, diarrhea, constipation, melena. : Denies dysuria, frequency, incontinence, hematuria, urinary retention. Musculoskeletal: See HPI Skin: Denies rash, skin lesions, or other. Neurologic: Denies weakness, headache, numbness, change in speech, confusion, seizures, incoordination. Psychiatric: No concerning psychosocial issues. 12-point review of systems is negative except for those stated above. Patient History <SUN Presley - Last Filed: 07/19/20 02:48> Medical History Cellulitis (Acute) Diabetes (Acute) Gastroesophageal reflux disease (Acute) Hyperlipidemia (Acute) Surgical History History of lumbar spinal fusion (Acute) Social History Smoking Status: Never smoker Smoking Status: Never smoker alcohol intake frequency: holidays/special occasions only Substance Use Type: does not use Exam <Carlos SUN Corona - Last Filed: 07/19/20 02:48> Narrative Exam Narrative: GEN: Alert, oriented x 3, well appearing and nourished, and in no acute distress. Head: Normal cephalic, atraumatic. No scalp or temporal tenderness, palpable mass or rash. EYES: Pupils are equal, round, and reactive to light and accommodation. Extraocular muscles are intact bilaterally. There is no subconjunctival hemorrhage, exudate and sclera non-icteric. ENT: Hearing grossly intact. Nose without bleeding, purulent discharge or dev iation. Mucous membrane moist, no mucosal lesion. Throat without erythema, tonsillar hypertrophy or exudate. Uvula in midline, airway patent. Neck: Trachea in midline. No JVD, non-tender without lymphadenopathy. No masses or thyroid megaly. Supple, non-tender and no meningeal signs. CARDIAC: Normal regular rate and rhythm without murmurs, gallops, or rubs. No chest wall tenderness. No peripheral edema, cyanosis or pallor. Capillary refill is less than 2 seconds. RESPIRATORY: Lungs are clear to auscultate bilaterally. No cough, wheezes, rales, or rhonchi. No stridor, respiratory distress, increase work of breathing, or accessary muscle used. ABD: Abdomen soft, nontender and non-distended. No guarding or rebound tenderness to palpate. Bowel sounds are normal in all 4 quadrants. There is no palpable masses or organomegaly. EXT: Full painless ROM of all extremities with no loss of sensation, strength, effusion or edema. No significant erythema, swelling, tenderness to palpate in bilateral lower legs. SKIN: Vertical Surgical incision on low back with intact sutures. Very mild erythema and edema to upper portion of surgical incision with very minimal non purulent drainage without significant warmth to palpate. BACK: Nontender without deformity or crepitance. No flank tenderness. NEUROLOGICAL: Alert and oriented to place, time and person. Sensation and motor function intact bilaterally. No facial droops, dysphasia. PSYCHIATRIC: Good judgement and reason, without hallucinations, abnormal affect or abnormal behaviors during the examination. Patient is not suicidal. Initial Vital Signs Initial Vital Signs: Vital Signs Temperature 99.7 F H 07/18/20 11:25 Pulse Rate 90 07/18/20 11:25 Respiratory Rate 14 07/18/20 11:25 Blood Pressure 144/72 H 07/18/20 11:25 Pulse Oximetry 97 07/18/20 11:25 <Toro Harrison DO - Last Filed: 07/19/20 07:33> Initial Vital Signs Initial Vital Signs: Vital Signs Temperature 99.7 F H 07/18/20 11:25 Pulse Rate 90 07/18/20 11:25 Respiratory Rate 14 07/18/20 11:25 Blood Pressure 144/72 H 07/18/20 11:25 Pulse Oximetry 97 07/18/20 11:25 Scores <SUN Presley - Last Filed: 07/19/20 02:48> GCS [place] coma scale eye opening: Spontaneous [place] coma scale verbal response: Orientated [place] coma scale motor response: Obey commands [place] coma scale total score: 15 qSOFA Altered Mental Status (GCS <15): No Respiratory rate greater than/equal to 22: No Systolic blood pressure less than or equal to 100: No qSOFA Total: 0 0-1 Not High Risk 1-3 High risk Course <SUN Presley - Last Filed: 07/19/20 02:48> Orders Ordered: Discontinued Medications Acetaminophen (Tylenol) 650 mg PO NOW ONE Stop: 07/18/20 11:39 Last Admin: 07/18/20 11:42 Dose: Not Given Documented by: CHASITY Acetaminophen (Tylenol) 325 mg PO NOW ONE Stop: 07/18/20 14:17 Last Admin: 07/18/20 14:29 Dose: 325 mg Documented by: DEBORA Cyclobenzaprine HCl (Flexeril) 10 mg PO NOW ONE Stop: 07/18/20 11:39 Last Admin: 07/18/20 11:43 Dose: Not Given Documented by: CHASITY Sodium Chloride (Normal Saline 0.9%) 1,000 mls @ 1,000 mls/hr IV BOLUS ONE Stop: 07/18/20 12:39 Last Infusion: 07/18/20 14:35 Dose: 0 mls/hr Documented by: Admin: 07/18/20 13:13 Dose: 1,000 mls/hr Documented by: DEBORA Ketorolac Tromethamine (Toradol) 30 mg IM NOW ONE Stop: 07/18/20 11:39 Last Admin: 07/18/20 11:43 Dose: Not Given Documented by: CHASITY Lidocaine (Lidoderm) 1 each TOP NOW ONE Stop: 07/18/20 11:39 Last Admin: 07/18/20 11:43 Dose: Not Given Documented by: CHASITY Lidocaine (Lidoderm (Remove Patch)) 1 each TOP BEDTIME TARUN Oxycodone/Acetaminophen (Percocet 5/325) 1 tab PO NOW ONE Stop: 07/18/20 14:17 Last Admin: 07/18/20 14:29 Dose: 1 tab Documented by: DEBORA Consultations Consultation #1: [facility]oke with [facility] and provide pertinent information to Dolores and waiting for Dr. Hoff's return phone call. Time: 15:09 Consultation #2: SPoke with Dr. Pedersen at [place] (neurosurgeon) with the findings. Recommended monitor the surgical wound and keep the sutures intact and keep the wound site open to air and to follow-up at the office on as scheduled. No further recommendation given with assuring labs, x-rays, urine test, physical exams, and vital signs. Time: 15:18 Vital Signs Vital signs: Vital Signs - 8 hr 07/18/20 11:25 07/18/20 14:25 07/18/20 15:35 Temperature 99.7 F H 98.8 F Pulse Rate 90 77 83 Respiratory Rate 14 18 16 Blood Pressure 144/72 H 121/67 130/78 Pulse Oximetry 97 99 99 <Toro Harrison, - Last Filed: 07/19/20 07:33> Orders Ordered: Discontinued Medications Acetaminophen (Tylenol) 650 mg PO NOW ONE Stop: 07/18/20 11:39 Last Admin: 07/18/20 11:42 Dose: Not Given Documented by: CHASITY Acetaminophen (Tylenol) 325 mg PO NOW ONE Stop: 07/18/20 14:17 Last Admin: 07/18/20 14:29 Dose: 325 mg Documented by: DEBORA Cyclobenzaprine HCl (Flexeril) 10 mg PO NOW ONE Stop: 07/18/20 11:39 Last Admin: 07/18/20 11:43 Dose: Not Given Documented by: CHASITY Sodium Chloride (Normal Saline 0.9%) 1,000 mls @ 1,000 mls/hr IV BOLUS ONE Stop: 07/18/20 12:39 Last Infusion: 07/18/20 14:35 Dose: 0 mls/hr Documented by: Admin: 07/18/20 13:13 Dose: 1,000 mls/hr Documented by: DEBORA Ketorolac Tromethamine (Toradol) 30 mg IM NOW ONE Stop: 07/18/20 11:39 Last Admin: 07/18/20 11:43 Dose: Not Given Documented by: CHASITY Lidocaine (Lidoderm) 1 each TOP NOW ONE Stop: 07/18/20 11:39 Last Admin: 07/18/20 11:43 Dose: Not Given Documented by: CHASITY Lidocaine (Lidoderm (Remove Patch)) 1 each TOP BEDTIME TARUN Oxycodone/Acetaminophen (Percocet 5/325) 1 tab PO NOW ONE Stop: 07/18/20 14:17 Last Admin: 07/18/20 14:29 Dose: 1 tab Documented by: DEBORA Vital Signs Vital signs: Vital Signs - 8 hr 07/18/20 11:25 07/18/20 14:25 07/18/20 15:35 Temperature 99.7 F H 98.8 F Pulse Rate 90 77 83 Respiratory Rate 14 18 16 Blood Pressure 144/72 H 121/67 130/78 Pulse Oximetry 97 99 99 MDM - Skin/Abscess/Foreign Bdy <Carlos SUN Corona - Last Filed: 07/19/20 02:48> Differential Diagnosis Differential diagnosis: Likely abscess of skin or subcutaneous tissue and other (Pneumonia, atelectasis, UTI, cellulitis, postsurgical infection) Medical Records Attestation: I reviewed the patient's medical records. Lab Data Attestation: I reviewed the patient's lab results. Result diagrams: 07/18/20 12:38 07/18/20 12:38 Labs: Lab Results 07/18/20 07/18/20 07/18/20 Range/Units 12:31 12:38 12:38 WBC 7.3 (4.5-11.0) X10^3/uL RBC 4.29 L (4.5-5.9) X10^6/uL Hgb 12.1 L (13.5-17.5) g/dL Hct 36.9 L (41-53) % MCV 85.9 (80-100) fL MCH 28.1 (26-34) PG MCHC 32.8 (30-36) % RDW 15.1 H (11.6-14.8) % Plt Count 316 (150-400) X10^3/uL Neut % (Auto) 69.8 (50-75) % Lymph % (Auto) 17.3 L (25-40) % [place] % (Auto) 9.7 (3-14) % Eos % (Auto) 2.8 (2-4) % Baso % (Auto) 0.4 (0-2) % Neut # (Auto) 5100 (2119-8558) /uL Lymph # (Auto) 1300 (4804-0673) /uL [place] # (Auto) 700 (0-900) /uL Eos # (Auto) 200 (0-450) /uL Baso # (Auto) 0 (0-100) /uL PT 12.1 (10.1-12.7) SECONDS INR 1.1 (0.9-1.3) APTT 28 (26.4-36.2) SECONDS Sodium (137-145) mmol/L Potassium (3.4-5.1) mmol/L Chloride (98-107) mmol/L Carbon Dioxide (22-32) mmol/L BUN (9-20) mg/dL Creatinine (0.66-1.25) mg/dL Estimated GFR (>60) mL/min BUN/Creatinine Ratio (6-22) Glucose (80-110) mg/dL Lactate (0.7-2.1) mmol/L Calcium (8.4-10.2) mg/dL Total Bilirubin (0.2-1.3) mg/dL AST (17-59) IU/L ALT (<50) IU/L Alkaline Phosphatase (38-126) U/L Total Protein (6.3-8.2) g/dL Albumin (3.5-5.0) g/dL Globulin (1.7-4.1) g/dL Albumin/Globulin Ratio (1.0-2.8) Lipase (23-300) U/L Procalcitonin (<0.5) ng/mL Urine RBC None seen (0-5/HPF) Urine WBC 0-1/hpf (0-5/HPF) Ur Squamous Epith Cells 0-1 /hpf (0-5/HPF) Urine Bacteria None seen (None) Ur Culture Indicated? Cult not indicated 07/18/20 07/18/20 07/18/20 Range/Units 12:38 12:38 12:38 WBC (4.5-11.0) X10^3/uL RBC (4.5-5.9) X10^6/uL Hgb (13.5-17.5) g/dL Hct (41-53) % MCV (80-100) fL MCH (26-34) PG MCHC (30-36) % RDW (11.6-14.8) % Plt Count (150-400) X10^3/uL Neut % (Auto) (50-75) % Lymph % (Auto) (25-40) % [place] % (Auto) (3-14) % Eos % (Auto) (2-4) % Baso % (Auto) (0-2) % Neut # (Auto) (0183-4380) /uL Lymph # (Auto) (7941-9989) /uL [place] # (Auto) (0-900) /uL Eos # (Auto) (0-450) /uL Baso # (Auto) (0-100) /uL PT (10.1-12.7) SECONDS INR (0.9-1.3) APTT (26.4-36.2) SECONDS Sodium 133 L (137-145) mmol/L Potassium 4.5 (3.4-5.1) mmol/L Chloride 100 (98-107) mmol/L Carbon Dioxide 27 (22-32) mmol/L BUN 21 H (9-20) mg/dL Creatinine 0.96 (0.66-1.25) mg/dL Estimated GFR > 60.0 (>60) mL/min BUN/Creatinine Ratio 21.9 (6-22) Glucose 253 H (80-110) mg/dL Lactate 1.6 (0.7-2.1) mmol/L Calcium 11.6 H (8.4-10.2) mg/dL Total Bilirubin 0.5 (0.2-1.3) mg/dL AST 25 (17-59) IU/L ALT 47 (<50) IU/L Alkaline Phosphatase 70 (38-126) U/L Total Protein 6.9 (6.3-8.2) g/dL Albumin 3.9 (3.5-5.0) g/dL Globulin 3.0 (1.7-4.1) g/dL Albumin/Globulin Ratio 1.3 (1.0-2.8) Lipase 112 (23-300) U/L Procalcitonin < 0.05 (<0.5) ng/mL Urine RBC (0-5/HPF) Urine WBC (0-5/HPF) Ur Squamous Epith Cells (0-5/HPF) Urine Bacteria (None) Ur Culture Indicated? Urine Dip Bedside Urine Glucose 1000 mg/dl Bedside Urine Bilirubin - Negative Bedside Urine Ketone - Negative Urine Specific [place] 1.025 Bedside Urine Occult Blood - Negative Bedside Urine pH 6.0 Bedside Urine Protein - Negative Bedside Urine Urobilinogen - Negative Bedside Urine Nitrite - Negative Bedside Urine Leukocytes - Negative Esterase Imaging Data Chest x-ray: Radiologist's Impression: [address] [address] XRay Report Signed Patient: Sukumar Ruano OMR#: [id number] : 8Acct:[id number] Age/Sex: 74 / MDate of Service: 07/18/20 Loc: ED Accession Number: [id number] Procedure: XR chest 1V Ordering Provider: Carlos Corona PROCEDURE: XR CHEST 1V INDICATIONS: suspected sepsis TECHNIQUE: One view of the chest was acquired. COMPARISON: [facility], CHEST 1 VIEW, 07/07/2017, 2:22. FINDINGS: Surgical changes and devices: Extensive fusion of visualized cervical spine is seen. Lungs and pleura: Lungs are clear. No pleural effusions or pneumothorax. Mediastinum: Mediastinal contours appear normal. Heart size is normal. Bones and chest wall: No suspicious bony lesions. Overlying soft tissues appear unremarkable. IMPRESSION: No acute cardiopulmonary pathology. Dictated by: Wes Miramontes M.D. on 07/18/2020 at 12:24 Approved by: Wes Miramontes M.D. on 07/18/2020 at 12:24 MDM Narrative Medical decision making narrative: This is a 74-year-old male who had recent lumbar fusion surgery on 07/07/20 at [facility] and released to home a week ago presents to ED requesting surgical dressing change and states he had fever up to 101 F 2 days ago and today's temperature is 99.7? during triage. Patient nontoxic appearing and reports pain is well managed with current pain medication regimen with oxycodone and Tylenol. Physical exam is not consistent with cellulitis in bilateral lower leg. Surgical site appears well without obvious infection. No significant erythema, pain, swelling, or purulent discharge appreciated. Urine test is negative for infection. Chest x- ray is negative for acute findings. CBC shows no leukocytosis. Normal lactate and procalcitonin. Mild anemia with H&H of 12.1/36.9 which is similar to patient's stay H&H 1 year ago. Mild hyponatremia of 133 and hyperglycemia of 253. Mildly elevated BUN of 21 with normal kidney function and liver function test. Patient received IVF and 1 tab of Oxycodone and Tylenol. Consulted Dr. Pedersen, neurosurgon, at [place] with physical findings, labs and imaging test. Dr. Pedersen recommended to have patient follow-up on as scheduled with assuring lab test and physical exam. He also recommended keep wound open to air if there is no drainage. Findings were shared with patient and daughter. Return precautions were discussed and they both verbalized understanding in agreement with the treatment plan. <Toro Harrison, DO - Last Filed: 07/19/20 07:33> Lab Data Labs: Lab Results 07/18/20 07/18/20 07/18/20 Range/Units 12:31 12:38 12:38 WBC 7.3 (4.5-11.0) X10^3/uL RBC 4.29 L (4.5-5.9) X10^6/uL Hgb 12.1 L (13.5-17.5) g/dL Hct 36.9 L (41-53) % MCV 85.9 (80-100) fL MCH 28.1 (26-34) PG MCHC 32.8 (30-36) % RDW 15.1 H (11.6-14.8) % Plt Count 316 (150-400) X10^3/uL Neut % (Auto) 69.8 (50-75) % Lymph % (Auto) 17.3 L (25-40) % [place] % (Auto) 9.7 (3-14) % Eos % (Auto) 2.8 (2-4) % Baso % (Auto) 0.4 (0-2) % Neut # (Auto) 5100 (6805-5481) /uL Lymph # (Auto) 1300 (4888-3578) /uL [place] # (Auto) 700 (0-900) /uL Eos # (Auto) 200 (0-450) /uL Baso # (Auto) 0 (0-100) /uL PT 12.1 (10.1-12.7) SECONDS INR 1.1 (0.9-1.3) APTT 28 (26.4-36.2) SECONDS Sodium (137-145) mmol/L Potassium (3.4-5.1) mmol/L Chloride (98-107) mmol/L Carbon Dioxide (22-32) mmol/L BUN (9-20) mg/dL Creatinine (0.66-1.25) mg/dL Estimated GFR (>60) mL/min BUN/Creatinine Ratio (6-22) Glucose (80-110) mg/dL Lactate (0.7-2.1) mmol/L Calcium (8.4-10.2) mg/dL Total Bilirubin (0.2-1.3) mg/dL AST (17-59) IU/L ALT (<50) IU/L Alkaline Phosphatase (38-126) U/L Total Protein (6.3-8.2) g/dL Albumin (3.5-5.0) g/dL Globulin (1.7-4.1) g/dL Albumin/Globulin Ratio (1.0-2.8) Lipase (23-300) U/L Procalcitonin (<0.5) ng/mL Urine RBC None seen (0-5/HPF) Urine WBC 0-1/hpf (0-5/HPF) Ur Squamous Epith Cells 0-1 /hpf (0-5/HPF) Urine Bacteria None seen (None) Ur Culture Indicated? Cult not indicated 07/18/20 07/18/20 07/18/20 Range/Units 12:38 12:38 12:38 WBC (4.5-11.0) X10^3/uL RBC (4.5-5.9) X10^6/uL Hgb (13.5-17.5) g/dL Hct (41-53) % MCV (80-100) fL MCH (26-34) PG MCHC (30-36) % RDW (11.6-14.8) % Plt Count (150-400) X10^3/uL Neut % (Auto) (50-75) % Lymph % (Auto) (25-40) % [place] % (Auto) (3-14) % Eos % (Auto) (2-4) % Baso % (Auto) (0-2) % Neut # (Auto) (7203-1981) /uL Lymph # (Auto) (5024-8657) /uL [place] # (Auto) (0-900) /uL Eos # (Auto) (0-450) /uL Baso # (Auto) (0-100) /uL PT (10.1-12.7) SECONDS INR (0.9-1.3) APTT (26.4-36.2) SECONDS Sodium 133 L (137-145) mmol/L Potassium 4.5 (3.4-5.1) mmol/L Chloride 100 (98-107) mmol/L Carbon Dioxide 27 (22-32) mmol/L BUN 21 H (9-20) mg/dL Creatinine 0.96 (0.66-1.25) mg/dL Estimated GFR > 60.0 (>60) mL/min BUN/Creatinine Ratio 21.9 (6-22) Glucose 253 H (80-110) mg/dL Lactate 1.6 (0.7-2.1) mmol/L Calcium 11.6 H (8.4-10.2) mg/dL Total Bilirubin 0.5 (0.2-1.3) mg/dL AST 25 (17-59) IU/L ALT 47 (<50) IU/L Alkaline Phosphatase 70 (38-126) U/L Total Protein 6.9 (6.3-8.2) g/dL Albumin 3.9 (3.5-5.0) g/dL Globulin 3.0 (1.7-4.1) g/dL Albumin/Globulin Ratio 1.3 (1.0-2.8) Lipase 112 (23-300) U/L Procalcitonin < 0.05 (<0.5) ng/mL Urine RBC (0-5/HPF) Urine WBC (0-5/HPF) Ur Squamous Epith Cells (0-5/HPF) Urine Bacteria (None) Ur Culture Indicated? Urine Dip Bedside Urine Glucose 1000 mg/dl Bedside Urine Bilirubin - Negative Bedside Urine Ketone - Negative Urine Specific [place] 1.025 Bedside Urine Occult Blood - Negative Bedside Urine pH 6.0 Bedside Urine Protein - Negative Bedside Urine Urobilinogen - Negative Bedside Urine Nitrite - Negative Bedside Urine Leukocytes - Negative Esterase Discharge Plan Departure Patient Disposition: Home Clinical Impression: Fever Qualifiers: Fever type: unspecified Qualified Code(s): R50.9 - Fever, unspecified Discharge Date/Time: 07/18/20 15:41 Instructions: DI for Fever (Symptom) -- Adult Activity Restrictions/Additional Instructions: You have been diagnosed with [fever unknown source. Blood tests, chest x-ray, urine tests are assuring. No fever in ED. vital signs are stable. ]. What to do: *Take your medications as directed. *Follow up with your primary care provider/Dr. Hoff's office in 3 days as scheduled. Let them know you were seen in the ED and that we asked you to be seen in follow up. You can keep the wound clean and dry and open to air as long as there is no drainage. You can shower but do not submerge wound in 2 water such as in bathtub. *Return to ED if you have any new, worsening, or concerning symptoms, such as [chest pain, breathing difficulty, unable to tolerate fluids, hot/red skin indicating skin infection, or any acute concerns]. Prescriptions: No Action Artificial Tears (polyvin alc) 1 - 2 drp ophthalmic (eye) QID PRN (Reason: Dry Eyes) RF: 0 bupropion HCl 150 mg Tablet Sustained-Release 12 Hr 150 mg PO BID RF: 0 ammonium lactate 12 % Lotion 1 applic TOPICAL BID RF: 0 prednisone 5 mg Tablet 5 mg PO DAILY RF: 0 cyanocobalamin (vitamin B-12) 1,000 mcg Tablet 1,000 mcg PO DAILY RF: 0 aspirin 81 mg Tablet,Delayed Release (Dr/Ec) 81 mg PO DAILY RF: 0 tamsulosin 0.4 mg Capsule 0.4 mg PO DAILY RF: 0 metformin 1,000 mg Tablet 1,000 mg PO BID RF: 0 gabapentin 300 mg Capsule 300 mg PO BID RF: 0 omeprazole 20 mg Capsule,Delayed Release(Dr/Ec) 20 mg PO DAILY RF: 0 multivitamin with minerals Tablet 1 tab PO DAILY RF: 0 losartan 100 mg Tablet 100 mg PO DAILY RF: 0 sulindac 200 mg Tablet 200 mg PO BID RF: 0 meclizine 25 mg Tablet,Chewable 25 - 50 mg PO DAILY PRN (Reason: Vertigo) RF: 0 methylphenidate HCl [Concerta] 27 mg Tablet Extended Release 24hr 27 mg PO DAILY RF: 0 rosuvastatin 5 mg Tablet 2.5 mg PO BEDTIME RF: 0 cholecalciferol (vitamin D3) [Vitamin D3] 1,000 unit Tablet 1,000 unit PO DAILY RF: 0 Referrals: Mimi Tomas MD [Primary Care Provider] - <Toro Harrison DO - Last Filed: 07/19/20 07:33> Cosign ED Attending Cosignature Attestation: I was immediately available in the department for consultation. This documentation has been reviewed and I agree with assessment and plan. Supervised by Toro Harrison DO
[2020-07-18 15:35] VITALS: BP 130/78; PULSE 83; RESP 16; O2SAT 99
== END 2020-07-18 15:41 | disposition home or self-care (01) ==
PROVIDERS: Emergency Provider Nurse Practitioner Family; Family Provider Family Medicine; PCP Family Medicine
DX: R50.9 Fever, unspecified (principal)
CPT/HCPCS: 36415; 71045; 80053; 81003; 81015; 83605; 83690; 84145; 85025; 85610; 85730; 87040; 96360; 99284

== ENCOUNTER 2021-09-17 05:09 | Emergency (ER) | payer MEDICARE, OTHER, SELFPAY ==
--- NOTE | 2021-09-17 05:17 | ED.GENADULT ---
HPI - General Adult General Chief complaint: Wound/Laceration Stated complaint: LT ANKLE SWOLLEN Time Seen by Provider: 09/17/21 05:17 Source: patient Mode of arrival: Ambulatory History of Present Illness HPI narrative: Patient is a 75-year-old male not on anticoagulation due sustained a fall while at home approximately 24 hours he did hit his ankle on an object when he is unsure as to what it was. Sustained abrasion over the area. Is a diabetic. Has had an infection in the past. He did put topical ointment over the area however last night the area was to the point where he could not sleep so he came into the emergency for evaluation. No other injuries reported the event Related Data Home Medications Medication Instructions Recorded Confirmed Artificial Tears (polyvin alc) 1 - 2 drp OPHTHALMIC (EYE) QID PRN 01/05/19 01/05/19 ammonium lactate 12 % lotion 1 applic TOPICAL BID 01/05/19 01/05/19 aspirin 81 mg tablet,delayed 81 mg PO DAILY 01/05/19 01/05/19 release bupropion HCl 150 mg tablet,12 hr 150 mg PO BID 01/05/19 01/05/19 sustained-release cholecalciferol (vitamin D3) 25 1,000 unit PO DAILY 01/05/19 01/05/19 mcg (1,000 unit) tablet (Vitamin D3) cyanocobalamin (vitamin B-12) 1,000 mcg PO DAILY 01/05/19 01/05/19 1,000 mcg tablet gabapentin 300 mg capsule 300 mg PO BID 01/05/19 01/05/19 losartan 100 mg tablet 100 mg PO DAILY 01/05/19 01/05/19 meclizine 25 mg chewable tablet 25 - 50 mg PO DAILY PRN 01/05/19 01/05/19 metformin 1,000 mg tablet 1,000 mg PO BID 01/05/19 01/05/19 methylphenidate HCl 27 mg 27 mg PO DAILY 01/05/19 01/05/19 tablet,extended release 24 hr (Concerta) multivitamin with minerals 1 tab PO DAILY 01/05/19 01/05/19 omeprazole 20 mg capsule,delayed 20 mg PO DAILY 01/05/19 01/05/19 release prednisone 5 mg tablet 5 mg PO DAILY 01/05/19 01/05/19 rosuvastatin 5 mg tablet 2.5 mg PO BEDTIME 01/05/19 01/05/19 sulindac 200 mg tablet 200 mg PO BID 01/05/19 01/05/19 tamsulosin 0.4 mg capsule 0.4 mg PO DAILY 01/05/19 01/05/19 Allergies Allergy/AdvReac Type Severity Reaction Status Date / Time No Known Drug Allergies Allergy Verified 06/30/19 20:38 Review of Systems Constitutional Constitutional: Denies fever(s) Musculoskeletal Musculoskeletal: Reports system reviewed and no additional complaints, except as documented and Reports as per HPI Integumentary/Breasts Skin/Breast: Reports system reviewed and no additional complaints, except as documented and Reports as per HPI Neurologic Neurologic: Reports system reviewed and no additional complaints, except as documented Hematologic/Lymphatic On Anticoagulants: No Patient History Medical History Cellulitis Diabetes Gastroesophageal reflux disease Hyperlipidemia Surgical History History of lumbar spinal fusion Social History Smoking Status: Never smoker Smoking Status: Never smoker alcohol intake frequency: holidays/special occasions only Substance Use Type: does not use Exam Initial Vital Signs Initial Vital Signs: Vital Signs Temperature 97.4 F L 09/17/21 05:20 Pulse Rate 78 09/17/21 05:20 Respiratory Rate 16 09/17/21 05:20 Blood Pressure 148/74 H 09/17/21 05:20 Pulse Oximetry 98 09/17/21 05:20 Cardio Pulses: dorsalis pedis present on the left Skin Other: Patient with a 2 cm x 1 cm abrasion over the malleolus of the left ankle. There is no surrounding erythema. No drainage. Neuro Sensory Exam: no sensory deficits noted Extrem Other: Patient does have limited range of motion of his left ankle but this is baseline for him. Scores [place] CT Head Rule Age <16 years old: No Patient on blood thinners: No Seizure after injury: No Exclusion: Patient NOT Excluded, Proceed to next steps GCS < 15 at 2 hr post trauma: No Suspected open or depressed skull fracture: No Any sign of basilar skull fracture (hemotympanum, raccoon eyes, Perry's sign, CSF danyell-/rhinorrhea): No Two or more episodes of vomiting: No Age greater or equal to 65 years: Yes Retrograde amnesia to the event greater or equal to 30 min: No Dangerous Mechanism (pedestrian vs. mv, occupant ejected from mv, fall from >3 ft or > 5 stairs): No Recommendation: Consider CT. The [place] Head CT Rule cannot rule out need for Imaging. GCS Mariia coma scale eye opening: Spontaneous Amidon coma scale verbal response: Orientated Amidon coma scale motor response: Obey commands Mariia coma scale total score: 15 Course Orders Ordered: ED Orders 09/17/21 05:22 XR ankle LT min 3V Stat Discontinued Medications Bacitracin (Bacitracin Oint 0.9 Gm Pckt) 1 applic TOP NOW ONE Stop: 09/17/21 05:23 Last Admin: 09/17/21 05:26 Dose: 1 applic Documented by: Vital Signs Vital signs: Vital Signs - 8 hr 09/17/21 05:20 Temperature 97.4 F L Pulse Rate 78 Respiratory Rate 16 Blood Pressure 148/74 H Pulse Oximetry 98 Medical Decision Making Imaging Data Extremity x-ray #1: My Impression: No fractures or dislocations MDM Narrative Medical decision making narrative: Initially patient reported only having pain in his left ankle. There is a small abrasion with the area that does not appear to be infected. The x-ray shows no signs of fracture. When I went to discuss the x-ray findings with him he stated that when he did fall he did hit his head. There was no loss of consciousness. Since that time he has had several episodes of nausea but no vomiting. Has had a slight headache. He is almost 24 hours out from the event. His only risk factor for obtaining a head CT is his age. He is not on anticoagulation. I feel that given his presentation today that we should hold on head CT is a have low suspicion for a skull fracture and low suspicion for intracranial bleed given the presentation this far out from the event. I did discuss this with him. He was given return precautions and follow-up instructions. He expressed understanding and agreement. Discharge Plan Departure Patient Disposition: Home Clinical Impression: Abrasion Instructions: Minor Wounds (Alternative Therapy) Activity Restrictions/Additional Instructions: The wound does not look infected however, I would recommend that you use a topical antibiotic ointment over the area. You can purchase this antibiotic ointment at any drug store. You can shower like normal and use soap and water like normal. If the area starts to become red or you start to have fevers you do need to return to the ER for further evaluation. Contact your primary care provider for a follow up. Prescriptions: No Action Artificial Tears (polyvin alc) 1 - 2 drp ophthalmic (eye) QID PRN (Reason: Dry Eyes) 0RF bupropion HCl 150 mg Tablet Sustained-Release 12 Hr 150 mg PO BID 0RF ammonium lactate 12 % Lotion 1 applic TOPICAL BID 0RF Rx Instructions: to sole of feet prednisone 5 mg Tablet 5 mg PO DAILY 0RF cyanocobalamin (vitamin B-12) 1,000 mcg Tablet 1,000 mcg PO DAILY 0RF aspirin 81 mg Tablet,Delayed Release (Dr/Ec) 81 mg PO DAILY 0RF tamsulosin 0.4 mg Capsule 0.4 mg PO DAILY 0RF metformin 1,000 mg Tablet 1,000 mg PO BID 0RF gabapentin 300 mg Capsule 300 mg PO BID 0RF omeprazole 20 mg Capsule,Delayed Release(Dr/Ec) 20 mg PO DAILY 0RF multivitamin with minerals Tablet 1 tab PO DAILY 0RF losartan 100 mg Tablet 100 mg PO DAILY 0RF sulindac 200 mg Tablet 200 mg PO BID 0RF meclizine 25 mg Tablet,Chewable 25 - 50 mg PO DAILY PRN (Reason: Vertigo) 0RF Rx Instructions: daily for vertigo or 1-2 hours prior to travel for motion sickness methylphenidate HCl [Concerta] 27 mg Tablet Extended Release 24hr 27 mg PO DAILY 0RF rosuvastatin 5 mg Tablet 2.5 mg PO BEDTIME 0RF cholecalciferol (vitamin D3) [Vitamin D3] 1,000 unit Tablet 1,000 unit PO DAILY 0RF Referrals: Mimi Tomas MD [Primary Care Provider] -
[2021-09-17 05:20] VITALS: BP 148/74; PULSE 78; RESP 16; TEMP 36.3; O2SAT 98; BMI 31.3
--- NOTE | 2021-09-17 05:22 | DI.RAD.S_ITS ---
PROCEDURE: XR ANKLE LT MIN 3V INDICATIONS: pain after fall TECHNIQUE: 3 views of the ankle were acquired. COMPARISON: None. FINDINGS: Bones: No fractures or dislocations. Ankle mortise is normally aligned. No suspicious bony lesions. Plantar calcaneal spurs. Soft tissues: No tibiotalar joint effusion. Achilles tendon appears normal. IMPRESSION: No acute abnormality of the left ankle. Dictated by: Dieudonne Rhoades M.D. on 09/17/2021 at 6:23 Approved by: Dieudonne Rhoades M.D. on 09/17/2021 at 6:24
[2021-09-17] MEDS: BACITRACIN OINT 0.9 GM PCKT 1 APPLIC TOP (05:26)
[2021-09-17] MEDS: ONDANSETRON 4 MG ODT PREPACK 1 BOTTLE MISC (05:53)
== END 2021-09-17 06:07 | disposition home or self-care (01) ==
PROVIDERS: Emergency Provider Emergency Medicine; Family Provider Family Medicine; PCP Family Medicine
DX: S90.512A Abrasion, left ankle, initial encounter (principal); W19.XXXA Unspecified fall, initial encounter; Y92.009 Unspecified place in unspecified non-institutional (private) residence as the place of occurrence of the external cause
CPT/HCPCS: 73610; 99283

== ENCOUNTER → 2023-03-28 13:40 | Outpatient (CLI) | payer OTHER, SELFPAY ==
--- NOTE | 2023-03-28 | DI.CT.S_ITS ---
PROCEDURE: CT SHOULDER RIGHT WITHOUT CON INDICATIONS: Primary osteoarthritis, right shoulder TECHNIQUE: Noncontrast 1-1.5 mm thick sections acquired from the acromioclavicular joint to the inferior scapula, with coronal and sagittal reformatting. COMPARISON: [facility] Outside Film, MR, MR SHOULDER RIGHT WITHOUT CONTRAST, 02/12/2023, 9:14. [facility] [place], CR, XR SHOULDER 2+ VIEWS RIGHT, 03/07/2023, 12:01. FINDINGS: Image quality: Excellent. Bones: No fracture or dislocation. Moderate osteoarthritic changes are seen in acromioclavicular and glenohumeral joint. There is a small corticated ossicle at the acromioclavicular joint which appears associated with the distal clavicle, possibly related prior surgery. Superior migration of the humeral head at the glenohumeral joint is likely secondary to chronic rotator cuff tendinopathy. Soft tissues: There is calcification of the distal supraspinatus tendon consistent with calcific tendinitis. Mild calcific tendinitis is also seen in the infraspinatus tendon. Moderate tendinosis of the subscapularis tendon. IMPRESSION: 1. 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 2. Rotator cuff tendinosis. There his calcific tendinitis of the supraspinatus and infraspinatus tendons. 3. No large joint effusion. Dictated by: Briana Reina M.D. on 03/28/2023 at 16:42 Approved by: Briana Reina M.D. on 03/28/2023 at 16:54
[2023-03-28 15:54] LABS: Add Manual Diff / Slide Review NO; Basophils Absolute Auto 0 /uL (0-100); Basophils Percent Auto 0.3 % (0-2); Eosinophils Absolute Auto 100 /uL (0-450); Eosinophils Percent Auto 1.4 % (2-4); Hematocrit 45.3 % (41-53); Hemoglobin 15.2 g/dL (13.5-17.5); Lymphocytes Absolute Auto 1200 /uL (1100-4500); Lymphocytes Percent Auto 22.8 % (25-40); Mean Corpuscular HGB Conc 33.5 % (30-36); Mean Corpuscular Hemoglobin 27.3 PG (26-34); Mean Corpuscular Volume 81.3 fL (80-100); Monocytes Absolute Auto 500 /uL (0-900); Monocytes Percent Auto 9.9 % (3-14); Neutrophils Absolute Auto 3300 /uL (1500-7000); Neutrophils Percent Auto 65.6 % (50-75); Platelet Count 165 X10^3/uL (150-400); Red Blood Cell Count 5.57 X10^6/uL (4.5-5.9); Red Cell Distribution Width 16.4 % (11.6-14.8); White Blood Cell Count 5.1 X10^3/uL (4.5-11.0)
[2023-03-28 16:17] LABS: BUN Creatinine Ratio 16.9 (6-22); Blood Urea Nitrogen 21 mg/dL (9-20); Calcium 9.1 mg/dL (8.4-10.2); Carbon Dioxide 26 mmol/L (22-32); Chloride 102 mmol/L (98-107); Estimated Glomerular Filt Rate > 60 mL/min (>60); Glucose 135 mg/dL (80-110); HEMOLYSIS < 15 (0-50); Potassium 4.1 mmol/L (3.4-5.1); Sodium 138 mmol/L (137-145)
== END ==
PROVIDERS: Family Provider Family Medicine; PCP Family Medicine; Referring Provider Orthopaedic Surgery; Visit Provider Orthopaedic Surgery
DX: Z01.818 Encounter for other preprocedural examination (principal); Z01.812 Encounter for preprocedural laboratory examination; M19.011 Primary osteoarthritis, right shoulder; M75.31 Calcific tendinitis of right shoulder
CPT/HCPCS: 36415; 73200; 80048; 85025; 93005; 93010

== ENCOUNTER 2023-06-05 06:00 | Inpatient (IN) | payer OTHER, SELFPAY ==
[2023-05-14 14:58] VITALS: BMI 32.9
[2023-06-05] VITALS (11 sets, daily range): BP systolic 125–146; BP diastolic 72–82; PULSE 71–82; RESP 10–17; TEMP 36.3–36.8; O2SAT 91–98; BMI 32.9
--- NOTE | 2023-06-05 06:00 | DI.RAD.S_ITS ---
PROCEDURE: XR SHOULDER RT 1V INDICATIONS: RTSA TECHNIQUE: 1 views of the shoulder were acquired. COMPARISON: None. FINDINGS: Bones: Right reversed total shoulder arthroplasty. The hardware appears intact without surrounding lucency or fracture. Soft tissues: Overlying postsurgical changes are seen.. IMPRESSION: Patient is status post right reverse shoulder arthroplasty. No acute postsurgical complications are seen on this single view. Dictated by: Tomy Castillo M.D. on 06/05/2023 at 11:31 Approved by: Tomy Castillo M.D. on 06/05/2023 at 11:33
[2023-06-05] MEDS: ACETAMINOPHEN 325 MG TABLET 975 MG PO (07:18)
[2023-06-05] MEDS: LACTATED RINGERS 1,000 ML 42 ML IV ×2 (07:20→08:59)
--- NOTE | 2023-06-05 07:20 | SUR.OPER ---
Beach chair with Joe/Juliano shoulder positioner. Lower body on padded OR bed. Head in foam padded head cradle, secured with straps. Non-operative arm secured <90 degrees abduction. Pillow under knees. Safety belt at thigh. Cloth tape over blanket over lower legs.
[2023-06-05] MEDS: HYDROCORTISONE 100 MG/2 ML VIAL IV (07:21)
--- NOTE | 2023-06-05 07:41 | PM.PREOP ---
Pre-operative Note Interval Note History & Physical reviewed/Exam performed by Physician: Yes Changes to H&P: No
[2023-06-05] MEDS: CEFAZOLIN 2 GM/100 ML PREMIX 100 ML IV (08:05)
[2023-06-05] MEDS: TRANEXAMIC ACID 1,000 MG VIAL 1000 MG INJ (08:23)
[2023-06-05] MEDS: BUPIVACAINE 0.25% (PF) 60 ML, EPINEPHrine 0.3 MG INJ (08:41)
[2023-06-05] MEDS: BUPIVACAINE LIPOSOME 266 MG/20 ML VIAL INJ (09:36)
--- NOTE | 2023-06-05 10:22 | P.OP_ITS ---
Operative Date/Time/Diagnoses Date of procedure: 06/05/23 Time of procedure: 10:22 Pre-op diagnosis: Right cuff tear arthropathy Post-op diagnosis: same Procedure & Clinicians Procedure: Right reverse total shoulder arthroplasty Same procedure as scheduled: Yes Indications: Indications: This is a 77-year-old male who has right rotator cuff tear arthropathy. Patient has failed conservative therapy including injections, physical therapy, anti-inflammatories and activity modification. After extensive discussion in clinic, they wished to go forward with surgery. Risks and benefits were described including the risk of infection, bleeding, damage to internal structures including nerves. We also discussed the risk of failure of surgery and the need for revision surgery as well as the risk of anesthesia. The patient expressed understanding with these risks and wished to go forward with surgery. Surgeon: Dustin Gallo Wire Fence Builder: Cecilia Meeks Click Yes if Unassisted: No Anesthesia Type: General Operative Notes Findings: Findings: Osteoarthritis of the glenoid and humeral head tears in the rotator cuff, subscap is intact as noted on preoperative imaging and under direct visualization Closure Type: primary Specimen(s): none sent Prosthetic devices, grafts, tissues, transplants, or devices: Tornier implants Base plate: standard 25 mm, +3 mm offset Glenosphere: 39 mm Stem: Perform 3 Poly: +0 concentric Estimated Blood Loss (mL): 25 Blood products transfused: none Procedure in detail: Patient was seen in the preoperative holding unit. The correct right shoulder was identified and marked with my initials. Again we discussed the risks and benefits of surgery and they wished to go forward with surgery. The patient was brought back to the operating room and placed supine on the operating table. Smooth endotracheal intubation was performed by anesthesia. All prominences were padded and they were placed into the beach chair position. Intravenous antibiotics were given. The right shoulder was then prepped with the standard sterile preparation and draping. A time-out was then performed in my initials were again identified on the correct shoulder. 1 g of IV tranexamic acid was given. A standard deltopectoral incision was made. Skin flaps were made. The cephalic vein was identified and retracted laterally. This was protected throughout the remainder of the case. Sharp dissection was made along the deltoid, subacromial and subcoracoid space to release adhesions. The conjoined tendon was identified and the axillary nerve was palpated and continuous using the tug test. It was protected throughout the remainder of the case. A brown retractor was placed underneath the deltoid muscle and a darach retractor underneath the conjoint tendon. The anterior circumflex artery and associated veins on the lower border of the subscapularis were identified and tied off using 0-Vicryl. The biceps tendon was identified in the bicipital groove. This was released from its sheath, and taken from its origin on the glenoid and tied into the pectoralis tendon for a solid tenodesis. We then began a subscapularis peel. The subsca pularis was tagged with an Ethibond suture. A 360 degree circumferential release of the subscapularis was performed with protection of the axillary nerve. The coracohumeral ligament was released at the base of the coracoid. The coracoacromial ligament was left intact. The shoulder was then dislocated. Osteophytes were removed using combination of rongeur and osteotome. The rotator cuff was noted to be insufficient. An intramedullary guide was used set at version of 20?. Using an oscillating saw a conservative humeral head cut was made. Impaction reamers were reamed up to a size 3 stem with a built-in angle 135?. A neck protector was placed. Attention was then turned to the glenoid. After retracting the humeral head posteriorly a circumferential release was performed of the capsule with protection of the axillary nerve. The labrum was then released starting at the biceps anchor and going around the rim a small amount of triceps was released from the inferior glenoid. A center guide pin was then placed using the guide, followed by Reamer. After adequate cartilage was removed the center drill hole was drilled and measured. Before the next step, 40 cc of Exparel mixed with Marcaine were placed around the capsule. The base plate was then implanted and screwed into place. The superior drill hole was drilled and filled in a nonlocking fashion, followed by the inferior in nonlocking fashion and anterior holes in locking fashion, A 39 glenosphere was then selected and screwed into place onto the base plate. Turning back to the humerus, the humeral head was delivered and trialed with a 0 concentric. The arm was taken through range of motion and this was felt to be stable. The trial was then removed and a dilute Betadine wash was then performed with 1 L of sterile saline. The rest of the 40 cc of Exparel plus Marcaine were placed into the deltoid, pectoralis muscle, proximal part of the conjoined tendon, and then some of the subcutaneous tissue. Before placing the final implant, drill holes were made in the bicipital groove for the subscapularis repair, and sutures were passed through the drill holes. The final stem was then impacted into the humerus. The shoulder was then reduced and again brought through range of motion and was felt to be stable. Subscapularis was then repaired using a modified racking hitch with nice loupes. The deltopectoral interval was then closed with #2 Ethibond. The skin was closed with 2-0 PDS and yuliana followed by Aquacel dressing. Patient was awoken from anesthesia and brought back to the postoperative recovery unit without issue. They were placed into a sling. Assisting participation: This operation could not have been safely performed (without compromising the technical results or length of the procedure) without the assistance of a skilled surgical services asst. The surgical services asst was medically necessary for proper positioning, retraction and manipulation of instruments, proper exposure, graft prep, and manipulation of tissue. Complications: none Post-operative Condition: stable Disposition: PACU Plan for aftercare: Postoperative instructions: Sling to remain on for 6 weeks. No external rotation past neutral for 6 weeks. Okay for him to come off her shower. Okay to shower over the Aquacel dressing. If any water gets underneath the dressing, remove the dressing. First postoperative visit in 2 weeks.
[2023-06-05] MEDS: HYDROMORPHONE 1 MG INJ IV ×2 (11:01→11:15)
[2023-06-05] MEDS: OXYCODONE IR 5 MG TABLET PO ×2 (11:04→12:29)
== END 2023-06-05 13:15 | disposition home or self-care (01) | DRG 483 ==
PROVIDERS: Admitting Provider Orthopaedic Surgery; Family Provider Family Medicine; PCP Family Medicine; Referring Provider Podiatrist; Visit Provider Orthopaedic Surgery
PROC: 0RRJ00Z Replacement of Right Shoulder Joint with Reverse Ball and Socket Synthetic Substitute, Open Approach (ICD-10-PCS; CPT 23472; principal; 2023-06-05 07:45)
DX: M19.011 Primary osteoarthritis, right shoulder (principal); M06.9 Rheumatoid arthritis, unspecified; E11.9 Type 2 diabetes mellitus without complications; G47.30 Sleep apnea, unspecified; M75.101 Unspecified rotator cuff tear or rupture of right shoulder, not specified as traumatic
CPT/HCPCS: 73020; C1776; C9290; J0171; J0690; J1170; J1720; J2250; J2405; J2704; J3010

== ENCOUNTER → 2025-03-16 09:58 | Outpatient (CLI) | payer OTHER, SELFPAY | PROVIDERS: Family Provider Family Medicine; PCP Family Medicine; Referring Provider Registered Nurse; Visit Provider Surgery | DX: R60.0 Localized edema (principal); L03.116 Cellulitis of left lower limb; F90.9 Attention-deficit hyperactivity disorder, unspecified type; N40.1 Benign prostatic hyperplasia with lower urinary tract symptoms; M21.371 Foot drop, right foot; M54.59 Other low back pain; E21.1 Secondary hyperparathyroidism, not elsewhere classified; F32.A Depression, unspecified; M70.42 Prepatellar bursitis, left knee | CPT/HCPCS: 99203; 99212 ==

== ENCOUNTER → 2025-03-31 10:25 | Outpatient (CLI) | payer OTHER, SELFPAY | PROVIDERS: Family Provider Family Medicine; PCP Registered Nurse; Referring Provider Registered Nurse; Visit Provider Surgery | DX: S81.812A Laceration without foreign body, left lower leg, initial encounter (principal); S80.822A Blister (nonthermal), left lower leg, initial encounter; I87.2 Venous insufficiency (chronic) (peripheral); E11.622 Type 2 diabetes mellitus with other skin ulcer | CPT/HCPCS: 11042; 99213 ==

== ENCOUNTER → 2025-04-02 13:04 | Outpatient (CLI) | payer OTHER, SELFPAY | LOC: WC 13:04 | PROVIDERS: Family Provider Family Medicine; PCP Registered Nurse; Referring Provider Registered Nurse; Visit Provider Nurse Practitioner Family | DX: S81.812A Laceration without foreign body, left lower leg, initial encounter (principal); L53.9 Erythematous condition, unspecified; R60.0 Localized edema | CPT/HCPCS: 29581 ==

== ENCOUNTER → 2025-04-06 11:09 | Outpatient (CLI) | payer OTHER, SELFPAY | LOC: WC 11:10 | PROVIDERS: Family Provider Family Medicine; PCP Registered Nurse; Referring Provider Registered Nurse; Visit Provider Surgery | DX: I87.2 Venous insufficiency (chronic) (peripheral) (principal); S81.812A Laceration without foreign body, left lower leg, initial encounter; S81.811A Laceration without foreign body, right lower leg, initial encounter; L89.93 Pressure ulcer of unspecified site, stage 3; L53.9 Erythematous condition, unspecified; R60.0 Localized edema | CPT/HCPCS: 11042; 97597; 99213 ==

== ENCOUNTER → 2025-04-14 09:52 | Outpatient (CLI) | payer OTHER, SELFPAY | LOC: WC 09:56 | PROVIDERS: Family Provider Family Medicine; PCP Registered Nurse; Referring Provider Registered Nurse; Visit Provider Surgery | DX: S81.812A Laceration without foreign body, left lower leg, initial encounter (principal); S81.811A Laceration without foreign body, right lower leg, initial encounter; S51.012A Laceration without foreign body of left elbow, initial encounter; S51.812A Laceration without foreign body of left forearm, initial encounter; I87.2 Venous insufficiency (chronic) (peripheral); E11.628 Type 2 diabetes mellitus with other skin complications; R60.0 Localized edema | CPT/HCPCS: 11042; 29581; 99213 ==

== ENCOUNTER → 2025-04-21 09:15 | Outpatient (CLI) | payer OTHER, SELFPAY | LOC: WC 09:16 | PROVIDERS: Family Provider Family Medicine; PCP Registered Nurse; Referring Provider Registered Nurse; Visit Provider Surgery | DX: S81.812A Laceration without foreign body, left lower leg, initial encounter (principal); S51.012A Laceration without foreign body of left elbow, initial encounter; S81.811D Laceration without foreign body, right lower leg, subsequent encounter; S51.812D Laceration without foreign body of left forearm, subsequent encounter; I87.2 Venous insufficiency (chronic) (peripheral); E11.628 Type 2 diabetes mellitus with other skin complications; M45.9 Ankylosing spondylitis of unspecified sites in spine | CPT/HCPCS: 11042; 29581 ==